=== PATIENT | female | born 1960 | race Caucasian/White ===

== ENCOUNTER → 2023-07-25 14:51 | Outpatient (REF) | payer BC, SELFPAY | LOC: HWRAD 14:51 | PROVIDERS: ATTENDING PHYSICIAN Family Medicine | DX: R10.32 Left lower quadrant pain (principal) | CPT/HCPCS: 74178; Q9967 ==

== ENCOUNTER → 2023-08-16 09:12 | Outpatient (REF) | payer BC, SELFPAY | LOC: RCS 09:12 | PROVIDERS: ATTENDING PHYSICIAN Internal Medicine Cardiovascular Disease; FAMILY PHYSICIAN Family Medicine | DX: I25.10 Atherosclerotic heart disease of native coronary artery without angina pectoris (principal); R06.09 Other forms of dyspnea; I25.84 Coronary atherosclerosis due to calcified coronary lesion | CPT/HCPCS: 93017; 93350 ==

== ENCOUNTER 2023-09-10 13:00 | Inpatient (IN) | payer BC, SELFPAY ==
[2023-09-09 21:59] VITALS: BP 157/101
[2023-09-09 22:20] VITALS: BMI 21.2
--- NOTE | 2023-09-09 22:45 | ED.CVA ---
History of Present Illness
General
Chief Complaint: CVA/TIA Symptoms
Source: patient
Exam Limitations: none
Time Seen by Provider: 09/09/23 22:13
Nursing documentation reviewed up to this point in time: agreed with
Onset of Stroke Symptoms
Onset of symptoms known: Yes
Date of onset of symptoms: 09/09/23
History of Present Illness
History of Present Illness:
63 by/o F with h/o HLD
08/27 she had HAILE and pelvic floor lift surgery at [facility]; all internal incisions through vaginal canal and rectum
has had some post op issues, sounds like ileus/constipation that resolved, urine retention (mix pulled 2 days ago)and ongoing L SI joint pain that is being attributed to a suspected suture sitting near her SI nerve
not on opiates at this time
here with what sounds like TIA symptoms startinghans leslie d830 pm
pt was sitting onthe couch and got up to go to bed and she went to put something into her L hand and realized it was closed in a not-tight fist and it wouldn't open; she apparently was trying to tell her daughter this was happening and the daugher
noticed slurred speech and a facial droop (unclear what side)
the daughter ran to get her dad outside who came in an also heard the slurred speech and noticed corner of mouth turned down but cannot remember what side
symptoms lated 4 min and completely resolved and now pt feels fine
she does report she has had some dysuria since her cathther was pulled
and today urinary frequeny, has edy up sevral times to void
n fever, chills, vomiting, abdominal pain, diarrhea, bleeding.
she has no h/o stroke
no smokinng
Past History
Past History
ED Past Medical History: None
ED Past Surgical History: None
Social History
Tobacco: Non-smoker
Alcohol: None
Review of Systems
Review of Systems
Allergies reviewed?: Yes
All Other Systems: Not applicable
Phy Exam
Physical Exam
Physical Exam:
GENERAL: Alert , in no apparent distress
head: ncat
EYE: pupils equal and reactive
NECK: Supple
ENT: MMM
CARDIAC: Regular rate and rhythm, no edema
LUNGS: Clear breath sounds bilaterally, no acute respiratory distress, no wheezes/rales/rhonchi, occ cough
ABDOMEN: Soft, without focal tenderness, no r/g, no cvat, normal bowel sounds
NEUROLOGICAL: Alert and oriented, no focal neuro deficits, cn intact, no facail asymmetry, 5/5 strength, sensation intact, neg romberg; normal extinction
SKIN: Warm and dry, skin intact.
MUSCULOSKELETAL: No edema, well perfused.
PSYCH: Normal and appropriate interaction.
Course
Orders/Labs/Results
Orders:
Orders
09/09/23 22:04
Electrocardiogram (*1) Urgent
Reason for Study: TIA/Stroke
EKG- Treatment ONCE
09/09/23 22:39
CT Head W/o Iv Contrast Urgent
Comment:
Reason For Exam: tia symptmos, resolved
Cardiac Monitoring- Treatment ONCE
09/09/23 22:49
Complete Blood Count/With Diff Urgent
Comprehensive Metabolic Panel Urgent
Magnesium Urgent
PTT Urgent
Prothrombin Time Urgent
Troponin I Urgent
09/09/23 22:56
Urinalysis Reflex To Culture Urgent
Date Specimen was Collected: 09/09/23
Time Specimen was Collected: 22:53
Urine Microscopic Reflex Cult Urgent
Urine Culture Urgent
OSWALDO Source: U
Specimen Description:
Obtained by: Random
Date Specimen was Collected: 09/09/23
Time Specimen was Collected: 22:53
09/10/23 00:49
Aspirin 325 mg PO NOW STA
Cephalexin Monohydrate [Keflex] 500 mg PO NOW STA
09/10/23 00:50
Consult Neurology [NEUROLOGY CONSULT] Routine
Consulting Provider: Uvaldo Rouse
Was physician already notified: Yes
Abnormal Lab Results
09/09/23 09/09/23
22:49 22:56
RBC 3.63 L 10^6/uL
(4.20-5.40)
Hgb 10.7 L g/dL
(12.0-16.0)
Hct 30.9 L %
(37.0-47.0)
Abs Immat Gran (auto) 0.1 H 10^3/uL
(0-0.05)
Absolute Neuts (auto) 7.5 H 10^3/uL
(1.4-6.5)
Absolute Lymphs (auto) 1.1 L 10^3/uL
(1.2-3.4)
Immature Gran % 1.1 H %
(0-0.5)
Neutrophils % 81.6 H %
(42.2-75.2)
Lymphocytes % 12.4 L %
(20.5-51.1)
PT 14.8 H Sec
(11.4-14.6)
Sodium 134 L mmol/L
(135-145)
BUN 22 H mg/dl
(7-17)
Glucose 112 H mg/dl
(70-99)
Ur Occult Blood Reflex 3+ A
(Negative)
Leukocyte Esterase Rfl 2+ A
(Negative)
Urine Bacteria (Reflex) Few A
(Negative)
09/09/23 22:49
09/09/23 22:49
Vital Signs
Initial and Last Documented VS:
Initial Vital Signs
Temp Pulse Resp BP Pulse Ox
99.1 F 113 18 157/101 99
09/09/23 21:59 09/09/23 21:59 09/09/23 21:59 09/09/23 21:59 09/09/23 21:59
Last Documented Vital Signs
Temp Pulse Resp BP Pulse Ox
99.1 F 73 15 129/79 94
09/09/23 21:59 09/10/23 00:00 09/10/23 00:00 09/10/23 00:00 09/09/23 23:30
MDM/Problems Addressed
Differential Diagnosis Includes:
TIA, TGA, UTI
MDM/Problems Addressed:
63 y/o F2 weeks post op surgery
just had mix pulledd 2 days ago, voiding ok but dysuria
TIA symptoms L hand weakness, slurred speech and facial droop lasting 4 minutes tonight, fully resolved
no ho similar episode in the past
on HLD
initially hypertenive, improved on own
neuro intact
urine appears to be infected
wbc normla
pending CT
d/w neuro
recommends bp control and asa
admit for MRI
*Critical Care Note
Total Time (30-74mins, 75-104mins- exclusive of procedures): Not Applicable
ED Attending Note
-
Portions of this chart may have been created with voice recognition software.� Occasional wrong word or��sound alike� substitutions may have occurred due to the inherent limitations of voice recognition software.
Discharge Plan
Departure
Patient Disposition: Admit
Date of Disposition: 09/10/23
Time of Disposition: 00:45
Admit to: Telemetry
Presentation/result/management discussed w/ accepting MD/DO: Hospitalist
Condition: Fair
Covid-19: Not Applicable
Discharge Problem:
Brain TIA, UTI (urinary tract infection)
Prescriptions:
No Action
cyclobenzaprine [Flexeril] 10 mg Tablet
10 mg PO TID PRN (Reason: spasms)
ibuprofen 600 mg Tablet
600 mg PO Q6H PRN (Reason: pain)
methylprednisolone [Medrol (Melvin)] 4 mg Tablets,Dose Pack
0 mg PO PER PKG DIR
Rx Instructions:
09/06 - 60mg, 09/07 - 50mg, 09/08 - 40mg, 09/09 - 30mg, 09/10 - 20mg, 09/11 - 10mg
rosuvastatin 10 mg Tablet
10 mg PO DAILY
Referrals:
UNKNOWN - PT DOES,NOT KNOW [Family Provider] -
Interventions
Interventions:
*Risk Screen - Suicide Last Done: 09/09/23 21:59
*General Assessment Last Done: 09/09/23 21:59
*Neglect/Abuse Screening Last Done: 09/09/23 21:59
*ED COVID-19 Vaccine History Last Done: 09/09/23 22:22
ED- Pulmonary Assessment Last Done: 09/09/23 22:22
ED- Neurological Assessment Last Done: 09/09/23 22:22
ED- Cardiac Assessment Last Done: 09/09/23 22:22
ED Swallowing Screen Last Done: 09/09/23 22:22
Discharge Date and Time
Print Language: SAMOAN
[2023-09-09 22:55] LABS: % Basophils 0.2 % (0-2); % Eosinophils 0.1 % (0-6); % Immature Granulocytes 1.1 % (0-0.5); % Lymphocytes 12.4 % (20.5-51.1); % Monocytes 4.6 % (1.7-9.3); % Neutrophils 81.6 % (42.2-75.2); Absolute Immature Granulocytes 0.1 10^3/uL (0-0.05); Absolute Lymphocytes 1.1 10^3/uL (1.2-3.4); Absolute Monocytes 0.4 10^3/uL (0.1-0.6); Absolute Neutrophils 7.5 10^3/uL (1.4-6.5); Hematocrit 30.9 % (37.0-47.0); Hemoglobin 10.7 g/dL (12.0-16.0); Mean Corp Hgb Conc. 34.6 g/dL (33.0-37.0); Mean Corpuscular Hgb 29.5 pg (27.0-31.0); Mean Corpuscular Volume 85.1 fL (81.0-99.0); Mean Platelet Volume 9.3 fL (7.4-10.4); Nucleated Red Blood Cells % 0 %; Platelet Count 372 10^3/uL (130-400); Red Blood Cell Count 3.63 10^6/uL (4.20-5.40); Red Cell Dist. Width 13.5 % (11.5-14.5); White Blood Cell Count 9.2 10^3/uL (4.8-10.8)
[2023-09-09 22:59] VITALS: BP 134/88
[2023-09-09 23:00] VITALS: BP 128/89
[2023-09-09 23:01] LABS: Urine Albumin Negative (Neg - Trace); Urine Bilirubin Negative (Negative); Urine Character Clear (Clear); Urine Color Yellow; Urine Glucose Negative (Negative); Urine Ketone Negative (Negative); Urine Leukocyte 2+ (Negative); Urine Nitrite Negative (Negative); Urine Occult Blood 3+ (Negative); Urine Urobilinogen Negative (Neg - 1+); Urine pH 6.5 (5.0-9.0)
[2023-09-09 23:06] LABS: APTT 24.3 Sec (23.4-35.0)
[2023-09-09 23:08] LABS: ALT (SGPT) 14 U/L (0-35); AST (SGOT) 23 U/L (14-36); Albumin 4.4 g/dl (3.5-5.0); Alkaline Phosphatase 58 U/L (38-126); Blood Urea Nitrogen 22 mg/dl (7-17); Calcium 9.4 mg/dl (8.4-10.2); Carbon Dioxide 23 mmol/L (22-30); Chloride 104 mmol/L (98-107); Estimated Creatinine Clearance 83 ml/min; Glucose 112 mg/dl (70-99); Magnesium 2.2 mg/dl (1.6-2.3); Potassium 4.1 mmol/L (3.5-5.1); Sodium 134 mmol/L (135-145); Total Bilirubin 0.5 mg/dl (0.2-1.3); Total Protein 7.3 g/dl (6.3-8.2); eGFR > 60.00
[2023-09-09 23:19] LABS: Troponin I < 0.012 ng/ml
[2023-09-09 23:20] LABS: Urine Bacteria Few (Negative); Urine Red Blood Cell 0-2 /HPF (0-2)
[2023-09-10] VITALS (9 sets, daily range): BP systolic 113–145; BP diastolic 68–91; PULSE 66; O2SAT 97; BMI 20.4
[2023-09-10 00:06] LABS: INR 1.18; PT 14.8 Sec (11.4-14.6)
[2023-09-10] MEDS: KEFLEX 500 MG PO ×4 (00:57→22:25)
[2023-09-10] MEDS: ASPIRIN 325 MG PO (01:05)
--- NOTE | 2023-09-10 02:05 | HPS.HSE ---
Family Physician
-
Family Physician: NOT KNOW UNKNOWN - PT DOES
Chief Complaint
-
Speech difficulty
History of Present Illness
Patient is a 63y F with PMH significant for dyslipidemia and recent hysterectomy who presents to ED complaining of slurred speech, L hand weakness and L facial droop this evening. Patient underwent vaginal hysterectomy and pelvic floor lift at
[facility] on 08/28/23. Her recovery has been somewhat complicated by urinary retention and LLE radicular pain. Patient had Womack placed which was removed about 2 days ago. She reports persistent dysuria and frequency since that time. Patient had LLE
radicular pain which was attributed to nerve irritation. She was placed on Medrol hendrix pack this Sunday with some improvement in these symptoms.
This evening, patient was lying on the couch watching TV. She got up to go to bed and noted that she could not open her L hand. She was trying to move an ice pack from her R hand to her L, but her L hand would not open. She attempted to describe
her issue to her daughter, who then noted that the patient's speech seemed slurred. Daughter went to get the patient's and both family members appreciated facial droop (L sided best she can recall). Patient seemed somewhat confused as well.
These symptoms lasted for no greater than 5 minutes before completely resolving. Patient feels back to baseline at present. She denies any prior history of similar symptoms.
Patient has prior history of migraine headaches and does note that she appreciated a visual aura this afternoon. She never did develop a headache. She has not had atypical migraine symptoms in the past.
Medical History
Past Medical History
Past Medical History: Reports Other
Additional Past Medical History:
Dyslipidemia
Fibromyalgia
Migraine Headaches
Past Surgical History: Reports Other
Additional Past Surgical History:
Cataracts
Cervical Lymph Node Dissection
Hemorrhoidectomy
08/28/23 - Vaginal Hysterectomy and Pelvic Floor Lift
Social History
Tobacco: Non-smoker
Alcohol: None
Drug: None
Personal:
Living: With Family
Family History
Family History: Other (Father: HTN, DM, CAD, CHF)
Allergies / Home Medications
Allergies reflects when Allergies were last updated in [employer].
Home Medications with original date entered in [employer]
Allergy/Medication List:
Allergies
Allergy/AdvReac Type Severity Reaction Status Date / Time
Sulfa (Sulfonamide Allergy Unknown Verified 10/30/21 14:00
Antibiotics)
Home Medications
cyclobenzaprine 10 mg tablet 10 mg PO TID PRN spasms 09/10/23
ibuprofen 600 mg tablet 600 mg PO Q6H PRN pain 09/10/23
methylprednisolone 4 mg tablets in a dose pack (Medrol (Melvin)) 0 mg PO PER PKG DIR 09/10/23
rosuvastatin 10 mg tablet 10 mg PO DAILY 09/10/23
Review of Systems
-
History Source: Patient
A 12 point ROS was completed and negative except as noted: Yes
Constitutional: Denies Fever or Chills
EENT: Denies Sore Throat
Respiratory: Denies Cough or Trouble Breathing
Cardiac: Denies Chest Pain or Palpitations
Abdomen/GI: Denies Abdominal Pain, Nausea, Vomiting or Diarrhea
: Reports Dysuria and Frequency
Musculoskeletal: Denies Joint Pain or Edema
Neurological: Reports Weakness and Other (Slurred speech / facial droop.); Denies Dizzy or Headache
Psych: Denies Depression or Anxiety
Physical Exam
Vital Signs
Vital Signs
Temp Pulse Resp BP Pulse Ox
99.1 F 67 16 129/79 95
09/09/23 21:59 09/10/23 01:30 09/10/23 01:30 09/10/23 00:00 09/10/23 01:30
Physical Exam
General: Other (63y F in no acute distress.)
HEENT: Moist mucous membranes and PERRLA
Respiratory: Clear; No Wheezes, Rales or Rhonchi
Cardiac: S1/S2 and Regular Rhythm; No Murmur
GI: Soft, Non Tender, Non Distended and Normal Bowel Sounds
Musculoskeletal: No Clubbing, No Cyanosis and No Edema
Neuro: AO x 3 and Other (Perhaps slight L facial droop but smile is symmetric and tongue extends to midline. No focal weakness or sensory deficit appreciated on exam.)
Laboratory Results
-
09/09/23 22:49
09/09/23 22:49
Laboratory Results
PT 14.8 Sec (11.4-14.6) H 09/09/23 22:49
INR 1.18 09/09/23 22:49
APTT 24.3 Sec (23.4-35.0) 09/09/23 22:49
Total Bilirubin 0.5 mg/dl (0.2-1.3) 09/09/23 22:49
AST 23 U/L (14-36) 09/09/23 22:49
ALT 14 U/L (0-35) 09/09/23 22:49
Alkaline Phosphatase 58 U/L (38-126) 09/09/23 22:49
Troponin I < 0.012 ng/ml 09/09/23 22:49
Impression/Plan
-
A/P: Patient is a 63y F with PMH significant for dyslipidemia and recent vaginal surgery who presents to ED complaining of L hand weakness, facial droop and dysarthria.
Left Hand Weakness
Dysarthria / Facial Droop
- Observe overnight for further evaluation and treatment.
- ? CVA / TIA versus atypical migraine (note aura appreciated earlier in the evening).
- Now back to baseline. Follow for any changes overnight.
- Continue ASA daily in addition to usual statin therapy.
- MR brain in the AM.
- Neurology evaluation for additional recommendations.
s/p Vaginal Hysterectomy / Pelvic Floor Lift
LLE Radicular Pain
- Continue current Medrol dose course without interruption.
- Symptoms seem to be gradually improving per patient.
Blood Loss Anemia
- Likely secondary to recent surgery.
- No evidence of any ongoing bleeding, etc.
- Follow for any changes.
DVT Prophylaxis: SCDs
Code Status: Full
--- NOTE | 2023-09-10 03:10 | PTCARENOTE ---
Received pt from ED into room 2134. Pt is ambulatory. Reports some discomfort from recent surgery. AAOx3. VSS. NIH 0. Patient resting comfortably in bed, call abbott within reach.
[2023-09-10 06:51] LABS: Hematocrit 32.6 % (37.0-47.0); Hemoglobin 11.1 g/dL (12.0-16.0); Mean Corpuscular Hgb 29.9 pg (27.0-31.0); Mean Corpuscular Volume 87.9 fL (81.0-99.0); Mean Platelet Volume 9.4 fL (7.4-10.4); Platelet Count 355 10^3/uL (130-400); Red Blood Cell Count 3.71 10^6/uL (4.20-5.40); Red Cell Dist. Width 13.4 % (11.5-14.5); White Blood Cell Count 10.8 10^3/uL (4.8-10.8)
[2023-09-10 07:18] LABS: Blood Urea Nitrogen 18 mg/dl (7-17); Carbon Dioxide 23 mmol/L (22-30); Chloride 104 mmol/L (98-107); Estimated Creatinine Clearance 82 ml/min; Glucose 111 mg/dl (70-99); HDL Cholesterol 52 mg/dl; LDL Cholesterol, Calculated 177 mg/dl; Potassium 4.7 mmol/L (3.5-5.1); Sodium 137 mmol/L (135-145); Total Cholesterol 248 mg/dl (50-199); Triglyceride 98 mg/dl (10-149); Very Low Density Lipoprotein 19 mg/dl (0-30); eGFR > 60.00
--- NOTE | 2023-09-10 09:05 | CON.NEURO4 ---
Addendum entered and electronically signed by Homer Juan MD 09/10/23 12:46:
Studies reviewed.
I have personally examined the patient. I reviewed and agree with the MAINTENANCE MECHANIC HELPER's Note.
My addenda:
Awake, alert, interactive. No acute distress.
Speech intact.
Follows 2-step requests w/o difficulty. No tremor.
Extra-ocular movements grossly intact.
Facial movements full and symmetric. Hearing intact to normal conversational volume.
Normal UE movements bilaterally.
Neck: full ROM.
Chest: no dyspnea
Heart: no JVD
Ext: (-) Clubbing, (-) Cyanosis, (-) Edema
IMPRESSIONS/RECOMMENDATIONS:
Abrupt onset of left hand closure difficulty with speech change and questionable left facial droop possibly all consistent with transient ischemic attack or migraine with aura (less likely)
Would continue aspirin indefinitely
Check MRI of brain with MRA head and neck for structural abnormalities
Increase home rosuvastatin dosing from 20 to 40 mg routinely
Goal of normotension
Continue decreasing prednisone dosing being utilized for post hysterectomy inflammation
D/W patient
Will continue to follow pending results.
Original Note:
Documented by User: Diana Jon NP 09/10/23 11:27
Consultation - Neurology 4
-
CONSULTING PHYSICIAN: Homer Juan MD
REFERRING PHYSICIAN: ER/Lela Ballard PA-C
DICTATED BY: BJ Alonso
DATE/TIME OF REQUEST: 09/10/23
DATE/TIME OF CONSULTATION: 09/10/23
Reason for Consultation: Left hand weakness, slurred speech
History of Present Illness:
This is a 63-year-old right-handed female who has presented to the hospital on 09/09/23 with report of left hand abnormality, slurred speech, and left facial drooping. Patient recently underwent HAILE and pelvic floor lift at [facility] on
08/28/23 for uterine prolapse. Postoperatively she experienced some complications including severe constipation, uterine retention (mix removed on 09/07/23), UTI, and left-sided SI joint pain thought to possibly be related to a suture near her
sciatic nerve.
Patient reports that last evening (09/09/23) at 2030 she was at her baseline sitting on her couch. She stood up to go get ready for bed and tried to pick something up in her left hand and noticed that her hand was closed tightly and she was unable
to open it. She went to tell her daughter about her hand, and her daughter noted that her speech sounded slurred and her left face appeared droopy. Her symptoms lasted for about 4 minutes before completely resolving. On arrival to the ER, NIHSS was
0. CT head was obtained and is negative for any acute abnormalities. She was not a candidate for TNK/IAT due to NIHSS 0, resolution of symptoms. She was loaded with aspirin 325mg in the ER. Today (09/10/23), patient reports feeling at her baseline.
She denies any headache, dizziness, vision changes, speech/swallow difficulty, numbness, weakness, chest pain, palpitations, and shortness of breath. She does report having a visual aura about 4 hours prior to this event. She still notes left entire
buttock discomfort and vaginal pressure. Last week she notes 1-2 days of left-sided sciatica but currently she does not have any left leg discomfort. She notes a history of migraine with aura and since her cataract extraction in 02/2023 she has been
seeing more floaters, but she has never had any other stroke symptoms with headaches previously. She also notes a history of severe left neck pain in 2021 with residual mild left neck/jaw pain that is more prominent in the winter months/worse with
wind exposure. She had a CTA neck and MRI neck completed in 2021 that were unremarkable. She has been taking Flexeril, ibuprofen, and a steroid taper for her left buttock discomfort.
Past Medical History: Migraine with aura, HLD, fibromyalgia, left-sided sciatica, uterine prolapse
Surgical History: cervical lymph node dissection, hysterectomy/pelvic floor lift, hemorrhoidectomy, wisdom teeth extraction, b/l cataract removal
Family History: Mother- from PE following surgery at age 55.
Social History: Denies tobacco and illicit drug use. Occasional alcohol.
Allergies: Sulfa.
Home Medications: See below.
Review of Symptoms:
Patient denies any fever, headache, chest pain, shortness of breath, GI symptoms.
�Per the HPI.�All systems are reviewed negative except above.
Physical Exam:
The patient is afebrile, abdomen is nondistended, breathing is unlabored, skin is warm and dry, no edema.
NIH Stroke Scale:
I performed the NIH stroke scale on the patient on 09/10/23 at 0915. The patient scored 0 points on the NIH stroke scale assessment, which were assigned as follows: See below.
Neurologic Examination:
The patient is awake, alert and oriented x 3. She is able to follow commands and answer questions appropriately. There is no aphasia or dysarthria. On cranial nerve assessment, pupils are 3 mm bilateral, round and reactive to light and
accommodation. Visual pearce are full. Extraocular movements are intact. Facial sensations are intact and bilaterally symmetrical, there is no facial asymmetry. Hearing is intact bilaterally to normal conversation volume. Tongue palate and uvula are
midline. Sternocleidomastoid strengths are full bilaterally. Motor strengths are 5/5 bilateral upper and lower extremities on medical research [place] scale. There is no drift or involuntary movement noted. Deep tendon reflexes are 2+ bilateral
upper and lower extremities and Babinski is absent bilaterally. There was no extinction noted on double simultaneous stimulation. Coordination is intact by finger to nose bilaterally.
Lab Results: See below.
Neuro Imaging:
1. CT Head 09/09/23: No CT abnormality is appreciated. Consider MRI of brain as symptomatically warranted.
Differentials for the patient's presentation include:
1. TIA possible.
2. Migraine with aura possible.
3. Seizure possible but less likely.
Patient has the following risk factors for their symptoms: HLD
IV Tenecteplase/IAT candidacy: She was not a candidate for TNK/IAT due to NIHSS 0, resolution of symptoms.
Recommendations:
-Continue aspirin 81mg daily.
-Goal normotension.
-MRI brain noncontrast, MRA neck/head pending.
-LDL goal <70. LDL is 177. Increase home rosuvastatin from 20mg to 40mg daily.
-Goal normoglycemia, hbA1c is pending.
-Checking blood work for metabolic abnormalities.
-NIHSS and neurological checks per unit guidelines.
-Provide patient with a stroke education packet.
-PT/OT evaluations.
-DVT prophylaxis.
-Will follow pending results.
Discussed patient care with: Dr. Juan, the patient
Vital Signs and Labs
-
Vital Signs and Labs:
Vital Signs
Temp Pulse Resp BP Pulse Ox
98.4 F 67 16 129/73 96
09/10/23 07:40 09/10/23 07:40 09/10/23 07:40 09/10/23 07:40 09/10/23 07:40
Lab Results
09/10/23 06:31
09/10/23 06:31
PT 14.8 Sec (11.4-14.6) H 09/09/23 22:49
INR 1.18 09/09/23 22:49
APTT 24.3 Sec (23.4-35.0) 09/09/23 22:49
Sodium 137 mmol/L (135-145) 09/10/23 06:31
Potassium 4.7 mmol/L (3.5-5.1) 09/10/23 06:31
BUN 18 mg/dl (7-17) H 09/10/23 06:31
Glucose 111 mg/dl (70-99) H 09/10/23 06:31
Calcium 10.0 mg/dl (8.4-10.2) 09/10/23 06:31
LDL Cholesterol, Calc 177 mg/dl 09/10/23 06:31
Medications
-
Active Medications
Generic Name Dose Route Start Last Admin
Trade Name Freq PRN Reason Stop Dose Admin
Acetaminophen 650 mg 09/10/23 03:46
Acetaminophen 325 Mg Tablet PO 10/08/23 03:45
Q4HPRN PRN
Mild Pain / Temp > 101
Aspirin 81 mg 09/11/23 08:00
Aspirin 81 Mg Chewable Tablet PO 10/09/23 07:59
DAILY PURA
Methylprednisolone 4 mg 09/11/23 08:00
Methylprednisolone 4 Mg Tablet PO 10/09/23 07:59
DAILY PURA
Rosuvastatin Calcium 20 mg 09/10/23 08:56
Rosuvastatin (Crestor) 10 Mg Tablet PO 10/08/23 07:59
DAILY PURA
Sodium Chloride 0 flush 09/10/23 04:00
Sodium Chloride 0.9% (Flush) Syringe IV 10/08/23 03:59
PER PROTOCOL PURA
Home Medications
�Medication �Instructions �Recorded
cyclobenzaprine 10 mg tablet 10 mg PO TID PRN spasms 09/10/23
ibuprofen 600 mg tablet 600 mg PO Q6H PRN pain 09/10/23
methylprednisolone 4 mg tablets in 0 mg PO PER PKG DIR 09/10/23
a dose pack (Medrol (Melvin))
rosuvastatin 10 mg tablet 10 mg PO DAILY 09/10/23
NIH Stroke Score
Subsequent NIH Scale
Date of Subsequent NIH Scale: 09/10/23
Time of Subsequent NIH Scale: 09:15
NIH Stroke Score
Level of Consciousness: 0 - Alert
LOC Questions: 0-Answers both correctly
LOC Commands: 0-Performs both correctly
Best Horizontal Gaze: 0-Normal
Visual Pearce: 0=Normal, no visual loss
Facial Palsy: 0=Normal, symmetrical
Motor - Right Arm: 0=No drift 10 seconds
Motor - Left Arm: 0=No drift 10 seconds
Motor - Right Le-No drift 5 seconds
Motor - Left Le-No drift 5 seconds
Limb Ataxia: 0-Absent
Sensation: 0-Normal
Best Language: 0-No aphasia
Dysarthria: 0-Normal
Extinction and Inattention: 0-No abnormality
Total Score:: 0
Modified [place] (mRS) Score
Modified [place] Scale (mRS): No symptoms
Score: 0

Documented by User: Homer Juan MD 09/10/23 12:44
NIH Stroke Score
NIH Stroke Score
Total Score:: 0
Modified [place] (mRS) Score
Score: 0
--- NOTE | 2023-09-10 09:22 | PTOTSP ---
pt currently demonstrates ability to complete simple ADLs, functional transfers, ambulation with supervision to no assistance. no acute OT needs identified, will sign off.
--- NOTE | 2023-09-10 11:07 | CM ---
Addendum entered by Monserrat Gonzalez RN 09/10/23 11:27:
Patient is admitted under observational status. The observational letter was provided and explained. The patient had no questions with regards to the letter.
Original Note:
Reviewed the chart notes and spoke with the patient at the bedside. The patient resides with her spouse in a two story home with no steps to enter. The patient reports no DME/VN/SNF in the past. The patient confirmed her pharmacy of choice is
the [facility] [address] [place]. The patient anticipates being discharged to home with no additional needs being identified at this time. CM continues to be available to patient/family and is monitoring medical plan for needs at
discharge.
Plan: Discharge to home when medically stable.
[2023-09-10 11:48] LABS: TSH Reflex To Free T4 0.65 uIU/ml (0.47-4.68)
[2023-09-10 12:24] LABS: Folate 11.3 ng/ml (2.76-20)
[2023-09-10] MEDS: NSS (PRESERVATIVE FREE) 1 ML IV (12:25)
[2023-09-10] MEDS: ATIVAN 2 MG IV (12:26)
[2023-09-10 13:23] LABS: Vitamin B12 625 pg/ml (239-931)
[2023-09-10 13:39] LABS: Glycohemoglobin (HgbA1c) 4.8 % (4.0-5.6)
[2023-09-10] MEDS: PLAVIX 75 MG PO (15:20)
--- NOTE | 2023-09-10 16:52 | W.PN.HOSP.TC ---
Today's Communication/Plan
-
Dual antiplatelet therapy
PPI.
Monitor blood pressure trend
Neurologic monitoring
Echocardiogram
Continue oral antibiotics.
Assessment / Plan
Assessment / Plan
Patient is a 63y F with PMH significant for dyslipidemia and recent vaginal surgery who presents to ED complaining of L hand weakness, facial droop and dysarthria.
Impression:
Presentation with left hand weakness, self-limited episode of dysarthria and facial droop.
Acute right hemispheric CVA
MRI of the brain confirms small acute/subacute infarcts in the right parietal lobe
MRA of the neck and kashia of [place] with no vascular abnormalities.
LDL 177.
Hemoglobin A1c pending.
Echocardiogram pending
Initiate dual antiplatelet therapy with aspirin and Plavix
Continue statin medication dose
Goal of normotension
Continue neurochecks
s/p Vaginal Hysterectomy / Pelvic Floor Lift
LLE Radicular Pain
- Continue current Medrol dose course without interruption.
- Symptoms seem to be gradually improving per patient.
Blood Loss Anemia
- Likely secondary to recent surgery.
- No evidence of any ongoing bleeding, etc.
- Follow for any changes.
UTI
Likely catheter associated UTI given recent Womack catheter required for urine retention.
Final urine cultures pending
Continue Keflex.
DVT Prophylaxis: SCDs
Code Status: Full
Anticipated Discharge: 24 - 48 hours
Subjective/Interval History
-
Date of Service: September 10, 2023
Objective Data
-
Labs:
Laboratory Results
09/10/23
06:31
WBC 10.8
Hgb 11.1 L
Hct 32.6 L
Plt Count 355
Sodium 137
Potassium 4.7
Chloride 104
Carbon Dioxide 23
BUN 18 H
Creatinine 0.5 L
Glucose 111 H
Calcium 10.0
Vital Signs:
Vital Signs
Temp Pulse Resp BP Pulse Ox
97.5 F 90 14 126/86 95
09/10/23 15:50 09/10/23 15:50 09/10/23 15:50 09/10/23 15:50 09/10/23 15:50
I&O
09/09/23 09/10/23 09/11/23
06:59 06:59 06:59
Intake Total 440 / 440
Balance 440 / 440
Physical Exam
-
General: Well Developed and No Apparent Distress
HEENT: Normocephalic, Atraumatic and Moist Mucous Membranes
Respiratory: Clear to Auscultation
Cardiac: Regular Rhythm and S1/S2; Negative Murmur, Rub or Gallop
GI: Soft, Nontender, Nondistended and Normal Bowel Sounds; Negative Organomegaly
Rectal: Deferred by Provider
Musculoskeletal: No Clubbing, No Cyanosis and No Edema
Skin: Negative Rash
Neuro: Nonfocal/Grossly Intact
[2023-09-10] MEDS: PROTONIX 20 MG PO (17:28)
[2023-09-10] MEDS: CRESTOR 40 MG PO (17:28)
--- NOTE | 2023-09-11 00:53 | PTCARENOTE ---
Pt woke up complaining of 5-6/10 chest pain on the R side that radiated to shoulder blade. Pt described it as a tightness that would get worse and then ease up repeatedly. Taking a deep breath would also increase pain in shoulder blade. VSS. BP
134/77, HR 71, 98%RA, afebrile. EKG -NSR. Notified [facility] REPA[facility]. Ordered STAT troponin. After a few minutes, pt stated that the pain went away in her chest but still has minimal pain in shoulder blade. Resting comfortably in bed, call abbott within reach.
[2023-09-11 01:33] LABS: Troponin I < 0.012 ng/ml
[2023-09-11 03:13] VITALS: BP 118/72
[2023-09-11 06:00] VITALS: BMI 20.1
[2023-09-11 07:45] VITALS: BP 133/83
[2023-09-11] MEDS: KEFLEX 500 MG PO ×2 (08:16→13:21)
[2023-09-11] MEDS: PLAVIX 75 MG PO (08:16)
[2023-09-11] MEDS: PROTONIX 20 MG PO (08:16)
[2023-09-11] MEDS: MEDROL 4 MG PO (08:16)
[2023-09-11] MEDS: LOW STRENGTH ASPIRIN 81 MG PO (08:17)
--- NOTE | 2023-09-11 10:06 | W.PN.NEURO.1 ---
Today's Communication / Plan
-
Would continue aspirin indefinitely
Increased rosuvastatin dosing from 20 to 40 mg routinely
Goal of normotension
Continue decreasing prednisone dosing being utilized for post hysterectomy inflammation
Check hypercoagulable profile as outpatient at 6 weeks
Neuro Assessment/Plan
Assessment
IMPRESSIONS/RECOMMENDATIONS:
Abrupt onset of left hand closure difficulty with speech change and questionable left facial droop possibly all consistent with transient ischemic attack or migraine with aura (less likely)
MRI of brain with MRA head and neck for structural abnormalities
Plan
Would continue aspirin indefinitely
Increased rosuvastatin dosing from 20 to 40 mg routinely
Goal of normotension
Continue decreasing prednisone dosing being utilized for post hysterectomy inflammation
Check hypercoagulable profile as outpatient at 6 weeks
Will follow as outpatient.
Subjective/Objective
Subjective Data
Date of Service: September 11, 2023
No issue with hand function.
Objective Data
Vital Signs
Temp Pulse Resp BP Pulse Ox
36.6 C 83 16 133/83 97
09/11/23 07:45 09/11/23 07:45 09/11/23 07:45 09/11/23 07:45 09/11/23 07:45
Lab Results
09/10/23 06:31
09/10/23 06:31
PT 14.8 Sec (11.4-14.6) H 09/09/23 22:49
INR 1.18 09/09/23 22:49
APTT 24.3 Sec (23.4-35.0) 09/09/23 22:49
Sodium 137 mmol/L (135-145) 09/10/23 06:31
Potassium 4.7 mmol/L (3.5-5.1) 09/10/23 06:31
BUN 18 mg/dl (7-17) H 09/10/23 06:31
Glucose 111 mg/dl (70-99) H 09/10/23 06:31
Calcium 10.0 mg/dl (8.4-10.2) 09/10/23 06:31
LDL Cholesterol, Calc 177 mg/dl 09/10/23 06:31
Vitamin B12 625 pg/ml (239-931) 09/10/23 06:31
Patient Allergies
Sulfa (Sulfonamide Antibiotics) Allergy (Verified 10/30/21 14:00)
Unknown
Review of Systems
-
History Source: Patient
All other systems: Reviewed and negative
Physical Exam
-
General: No Apparent Distress and Appears Stated Age
Eyes: Round OU, [place] Conjunctivae and No Ptosis
HEENT: Anicteric and Moist Mucous Membranes
Neck: Full Range of Motion
Respiratory: No Dyspnea
Cardiac: No JVD
GI: Non-distended
Skin: Unremarkable
Extremities: No Clubbing, No Cyanosis and No Edema
Psych: Negative Intact Judgement/Insight
Extended Neurological Exam
Mood & Affect: Depressed and Anxious
Attention Span & Concentration: Awake, Alert and Interactive
Memory: Unremarkable
Tremor: Hand Tremor Absent and Head Tremor Absent
Speech: Quality Unremarkable and Quantity Unremarkable
Cranial Nerve II: Left Eye: Pupillary Size Unremarkable and Visual Pearce Grossly Intact
Cranial Nerve II: Right Eye: Pupillary Size Unremarkable and Visual Pearce Grossly Intact
Cranial Nerves III, IV, : Extraocular Movement: Grossly Intact
Cranial Nerve VII: Facial Symmetry: Normal Facial Symmetry
Cranial Nerve VIII: Hearing: Unremarkable Hearing to Normal Conversational Volume
Muscle Strength, Overall: Spontaneously Moves (all extremities)
Muscle Bulk & Tone: Tone Unremarkable
Touch Sensation: Unremarkable
Coordination: Reaches for Objects without Difficulty
Past History
Past History
ED Past Surgical History: Gynecological
Social History
Tobacco: Non-smoker
Alcohol: None
Family History
Family History: Other (reviewed and non-contributory)
Medications
-
Medications:
Generic Name Dose Route Start Last Admin
Trade Name Freq PRN Reason Stop Dose Admin
Acetaminophen 650 mg 09/10/23 03:46
Acetaminophen 325 Mg Tablet PO 10/08/23 03:45
Q4HPRN PRN
Mild Pain / Temp > 101
Aspirin 81 mg 09/11/23 08:00 09/11/23 08:17
Aspirin 81 Mg Chewable Tablet PO 10/09/23 07:59 81 mg
DAILY PURA Administration
Cephalexin HCl 500 mg 09/10/23 13:00 09/11/23 08:16
Cephalexin 500 Mg Capsule PO 500 mg
QID PURA Administration
Clopidogrel Bisulfate 75 mg 09/10/23 14:00 09/11/23 08:16
Clopidogrel 75 Mg Tablet PO 09/30/23 08:01 75 mg
DAILY PURA Administration
Methylprednisolone 2 mg 09/12/23 08:00
Methylprednisolone 4 Mg Tablet PO 10/10/23 07:59
DAILY PURA
Pantoprazole Sodium 20 mg 09/10/23 17:00 09/11/23 08:16
Pantoprazole 20 Mg Delayed Release Tablet PO 10/08/23 16:59 20 mg
DAILY PURA Administration
Polyethylene Glycol 17 grams 09/11/23 09:00
Polyethylene Glycol Powder 17 Grams Packet PO 10/09/23 08:59
DAILY PURA
Rosuvastatin Calcium 40 mg 09/10/23 18:00 09/10/23 17:28
Rosuvastatin (Crestor) 40 Mg Tablet PO 10/08/23 17:59 40 mg
QPM PURA Administration
Sodium Chloride 0 flush 09/10/23 04:00
Sodium Chloride 0.9% (Flush) Syringe IV 10/08/23 03:59
PER PROTOCOL PURA
[2023-09-11] MEDS: MIRALAX 17 GRAMS PO (10:28)
[2023-09-11 11:25] VITALS: BP 121/81
--- NOTE | 2023-09-11 13:07 | W.DS.TRANS ---
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
-
Discharge Instructions:
Discharge Diagnosis/Procedures CVA
Diet Low Cholesterol
Instructions:
Stand-Alone Forms:
Changes to Home Medications: Yes
Discharge Medications:
DC Medications w/original date entered in [employer]
cyclobenzaprine 10 mg tablet 10 mg PO TID PRN spasms 09/10/23
methylprednisolone 4 mg tablets in a dose pack (Medrol (Melvin)) 0 mg PO PER PKG DIR inflammation 09/10/23
aspirin 81 mg chewable tablet 81 mg PO DAILY #30 tabs 09/11/23
cephalexin 500 mg capsule 500 mg PO QID #12 caps 09/11/23
clopidogrel 75 mg tablet 75 mg PO DAILY #19 tabs 09/11/23
pantoprazole 20 mg tablet,delayed release 20 mg PO DAILY #30 tabs 09/11/23
rosuvastatin 40 mg tablet 40 mg PO QPM #30 tabs 09/11/23
Home Medication Changes
DAPT along with PPI
Increased dose of statin
Pending Results: No
--- NOTE | 2023-09-11 13:10 | CM ---
Reviewed the chart notes and spoke with the patient. Patient being discharged today to home with no needs. Patient's family will provide transportation.
== END 2023-09-11 15:14 | disposition home or self-care (01) | DRG 65 ==
LOC: 2 NORTH 13:00
PROVIDERS: Nurse Practitioner Family; Physician Assistant; ADMITTING PHYSICIAN Hospitalist; ATTENDING PHYSICIAN Internal Medicine; EMERGENCY PHYSICIAN Student in an Organized Health Care Education/Training Program; OTHER PHYSICIAN Psychiatry & Neurology Neurology
DX: I63.9 Cerebral infarction, unspecified (principal); D62 Acute posthemorrhagic anemia; T83.511A Infection and inflammatory reaction due to indwelling urethral catheter, initial encounter; N39.0 Urinary tract infection, site not specified; D68.59 Other primary thrombophilia; G83.24 Monoplegia of upper limb affecting left nondominant side; Y84.6 Urinary catheterization as the cause of abnormal reaction of the patient, or of later complication, without mention of misadventure at the time of the procedure; R29.700 NIHSS score 0; R47.1 Dysarthria and anarthria; R47.81 Slurred speech; R29.810 Facial weakness; M54.32 Sciatica, left side; M79.7 Fibromyalgia; E78.5 Hyperlipidemia, unspecified; G43.909 Migraine, unspecified, not intractable, without status migrainosus; Z79.52 Long term (current) use of systemic steroids; Z79.899 Other long term (current) drug therapy; Z98.890 Other specified postprocedural states; Z90.710 Acquired absence of both cervix and uterus; Z88.2 Allergy status to sulfonamides
CPT/HCPCS: 70450; 70544; 70548; 70551; 80048; 80053; 80061; 81003; 81015; 82607; 82728; 82746; 83036; 83735; 84443; 84484; 85025; 85027; 85610; 85730; 87086; 93005; 93306; 96374; 97161; 97165; 99285; A9585

== ENCOUNTER 2023-09-12 23:20 | Emergency (ER) | payer BC, SELFPAY ==
[2023-09-12 23:22] VITALS: BP 130/90
[2023-09-13 00:59] VITALS: BMI 19.5
[2023-09-13 01:00] VITALS: BP 119/77
--- NOTE | 2023-09-13 01:22 | ED.GENMED ---
History of Present Illness
General
Chief Complaint: DVT/Possible Blood Clot
Source: patient and previous hospital records (Recent hospitalization September 09 to September 10 for self-limiting left hand weakness, left facial droop. Found to have small acute right parietal infarct.)
Exam Limitations: none
Time Seen by Provider: 09/13/23 01:01
Nursing documentation reviewed up to this point in time: agreed with
History of Present Illness
History of Present Illness:
This is a 63-year-old woman who underwent vaginal hysterectomy with pelvic floor lift procedure August 27 at [facility]. Since that surgery she has been suffering with left sacroiliac pain, left lower extremity radiculopathy thought to be
related to a suture near her sciatic nerve on the left.
She was hospitalized acutely here overnight September 08 until September 10 when she presented with self-limiting left hand weakness, left facial droop. MRI revealed a small acute infarct right parietal lobe. During that hospitalization she was also found to
have catheter associated UTI due to Womack catheter that was in place for 10 days postop hysterectomy.
Discharge to home on aspirin and Plavix, atorvastatin increased from 20 to 40 mg daily and started on Keflex for UTI.
She continues on prednisone taper for left sacroiliac pain/sciatica and as such was started on PPI for GI protection.
She presents tonight with complaints of bruises noted posterior aspect of both knees more pronounced behind her left knee with focal tenderness posterior knee more so left than the right. She was concerned for possible blood clot. She denies calf
pain nor swelling, no weakness nor numbness. She has had no difficulty urinating, no hematuria.
Left sciatic pain is slowly improving. She has had no falls nor known injuries.
Past History
Past History
ED Past Medical History: CVA (Right parietal CVA September 09, 2023-no residual deficits), Hypercholesterolemia and Other (Migraine headaches, fibromyalgia)
ED Past Surgical History: Gynecological (Vaginal hysterectomy/pelvic floor left August 28, 2023)
Social History
Tobacco: Non-smoker
Alcohol: None
Personal:
Living: with family
Employment: Employed
Family History
Family History: Other (reviewed and non-contributory)
Phy Exam
Physical Exam
Physical Exam:
GENERAL: 63-year-old woman appears her stated age, bright and alert, pleasant, appears in no acute distress. Daughter is accompanying.
EYE: anicteric
NECK: Supple, nontender, no meningismus, no significant adenopathy.
ENT: oral mucosa is moist. No rhinorrhea.
CARDIAC: Regular rate and rhythm. no murmur.
LUNGS: Clear breath sounds bilaterally, no acute respiratory distress, no wheezes/rales/rhonchi
ABDOMEN: Soft, nondistended, without focal tenderness, normoactive BS.
NEUROLOGICAL: Alert and oriented x3, no focal neuro deficits. Gait is steady.
SKIN: Warm and dry, normal color, skin intact. No rash.
MUSCULOSKELETAL: No C/C/E. peripheral pulses are full and equal b/l. There is near symmetric rounded ecchymotic patches bilateral posterior popliteal regions. Ecchymotic patch slightly larger left posterior knee with mild to moderate local
tenderness to palpation. Mild local soft tissue swelling. There is no ecchymosis, no joint effusion, no palpable bony tenderness to the knee and full knee range of motion without difficulty nor pain. There is no calf tenderness, no palpable
cords. No erythema nor palpable heat.
PSYCH: Normal and appropriate interaction.
Course
Orders/Labs/Results
Orders:
Orders
09/12/23 23:27
US Periph Venous LOWER Ext LT Urgent
Comment:
Reason For Exam: PAIN/HEMATOMA BEHIND KNEE
Vital Signs
Initial and Last Documented VS:
Initial Vital Signs
Temp Pulse Resp BP Pulse Ox
98.1 F 88 24 130/90 95
09/12/23 23:22 09/12/23 23:22 09/12/23 23:22 09/12/23 23:22 09/12/23 23:22
Last Documented Vital Signs
Temp Pulse Resp BP Pulse Ox
98.1 F 88 24 119/77 97
09/12/23 23:22 09/12/23 23:22 09/12/23 23:22 09/13/23 01:00 09/13/23 01:00
MDM/Problems Addressed
Differential Diagnosis Includes:
Patient presents with small subcutaneous hematomas posterior popliteal bilaterally, more pronounced left posterior knee than right with mild to moderate local tenderness to palpation.
Concerning for focal contusion bilaterally perhaps from sitting in a wheelchair, stirrups.
Less likely DVT however venous Doppler left lower extremity obtained which is negative for DVT.
There is no joint effusion, no pain with range of motion of knee. There is no peripheral edema nor erythema.
Recommend supportive measures for focal contusions/hematomas, local warm compresses. May take Tylenol as needed for pain. Patient knows to avoid NSAIDs especially with dual antiplatelet and prednisone.
Follow-up with PCP for recheck.
Return precautions discussed.
Chronic conditions affecting care: Previous abdomnial surgery and Other (Recent ischemic stroke. Dual antiplatelet therapy)
*Radiology
Radiology exam reviewed: other (Venous Doppler left lower extremity negative for DVT.)
*Pulse Oximetry
Patient hypoxic: no
*Critical Care Note
Total Time (30-74mins, 75-104mins- exclusive of procedures): Not Applicable
ED Attending Note
-
Portions of this chart may have been created with voice recognition software.� Occasional wrong word or��sound alike� substitutions may have occurred due to the inherent limitations of voice recognition software.
Discharge Plan
Departure
Patient Disposition: Home (Routine Discharge)
Date of Disposition: 09/13/23
Time of Disposition: 01:22
Patient with high blood pressure during this ER visit?: No
Condition: Good
Discharge Problem:
bilateral posterior knee hematoma
Instructions: Hematoma
Prescriptions:
No Action
cyclobenzaprine 10 mg Tablet
10 mg PO TID PRN (Reason: spasms)
methylprednisolone [Medrol (Melvin)] 4 mg Tablets,Dose Pack
0 mg PO PER PKG DIR
Rx Instructions:
6/28 - 60mg, 29 - 50mg, 30 - 40mg, 7/1 - 30mg, 7/2 - 20mg, 7/3 - 10mg
cephalexin 500 mg Capsule
500 mg PO QID Qty: 12 0RF
aspirin 81 mg Tablet,Chewable
81 mg PO DAILY Qty: 30 0RF
clopidogrel 75 mg Tablet
75 mg PO DAILY Qty: 19 0RF
pantoprazole 20 mg Tablet,Delayed Release (Dr/Ec)
20 mg PO DAILY Qty: 30 0RF
rosuvastatin 40 mg Tablet
40 mg PO QPM Qty: 30 0RF
Referrals:
Andre Hatfield, DO [Active] - Call in 1-3 days for appt
Interventions
Interventions:
*Risk Screen - Suicide Last Done: 09/12/23 23:22
*General Assessment Last Done: 09/13/23 01:00
*Neglect/Abuse Screening Last Done: 09/12/23 23:22
ED- Fall Risk Assessment Last Done: 09/13/23 01:00
ED- Cardiac Assessment Last Done: 09/13/23 01:00
ED- Pulmonary Assessment Last Done: 09/13/23 01:00
ED-Peripheral Vascular Assessment Last Done: 09/13/23 01:00
ED-Skin Assessment Last Done: 09/13/23 01:00
Discharge Date and Time
Print Language: CROATIAN
== END 2023-09-13 01:37 | disposition home or self-care (01) ==
LOC: EMR 23:20
PROVIDERS: EMERGENCY PHYSICIAN Emergency Medicine; FAMILY PHYSICIAN Family Medicine
DX: S80.02XA Contusion of left knee, initial encounter (principal); S80.01XA Contusion of right knee, initial encounter; X58.XXXA Exposure to other specified factors, initial encounter
CPT/HCPCS: 99284; 93971

== ENCOUNTER 2023-10-17 14:14 | Emergency (ER) | payer BC, SELFPAY ==
[2023-10-17] VITALS (8 sets, daily range): BP systolic 115–143; BP diastolic 71–103; BMI 20.7
[2023-10-17 14:44] LABS: % Basophils 0.4 % (0-2); % Eosinophils 0.2 % (0-6); % Immature Granulocytes 0.4 % (0-0.5); % Lymphocytes 18.2 % (20.5-51.1); % Monocytes 4.1 % (1.7-9.3); % Neutrophils 76.7 % (42.2-75.2); Absolute Lymphocytes 1.9 10^3/uL (1.2-3.4); Absolute Monocytes 0.4 10^3/uL (0.1-0.6); Absolute Neutrophils 8.2 10^3/uL (1.4-6.5); Hematocrit 39.8 % (37.0-47.0); Hemoglobin 13.4 g/dL (12.0-16.0); Mean Corp Hgb Conc. 33.7 g/dL (33.0-37.0); Mean Corpuscular Hgb 30.2 pg (27.0-31.0); Mean Corpuscular Volume 89.6 fL (81.0-99.0); Mean Platelet Volume 9.5 fL (7.4-10.4); Nucleated Red Blood Cells % 0 %; Platelet Count 327 10^3/uL (130-400); Red Blood Cell Count 4.44 10^6/uL (4.20-5.40); Red Cell Dist. Width 13.5 % (11.5-14.5); White Blood Cell Count 10.6 10^3/uL (4.8-10.8)
[2023-10-17 14:45] LABS: Urine Albumin Trace (Neg - Trace); Urine Bilirubin Negative (Negative); Urine Character Clear (Clear); Urine Color Yellow; Urine Glucose Negative (Negative); Urine Ketone Negative (Negative); Urine Leukocyte 1+ (Negative); Urine Nitrite Negative (Negative); Urine Occult Blood 1+ (Negative); Urine Specific Gravity 1.015 (<1.030); Urine Urobilinogen Negative (Neg - 1+); Urine pH 6.5 (5.0-9.0)
--- NOTE | 2023-10-17 14:58 | ED.GENMED ---
History of Present Illness
General
Chief Complaint: Abdominal Pain
Time Seen by Provider: 10/17/23 14:58
History of Present Illness
History of Present Illness:
HPI: Patient presents with left-sided groin pain. She has had less severe pain in the past but this type of pain became more severe 3 days ago. She saw her surgeon 2 days ago (had pelvic floor surgery with hysterectomy 2 months ago) and has been
receiving trigger point injections through the vaginal wall. She had some subjective fevers and chills.
EXAM:
GENERAL: Well appearing in no distress
HEENT: Moist oral mucosa
CARDIOVASCULAR: No murmurs, normal heart rate, regular rhythm, No chest wall tenderness
PULMONARY: No respiratory distress, breath sounds are clear and equal
ABDOMEN: Soft with no peritoneal signs, no tenderness on the right side, there is mild tenderness to the left upper and left lower quadrant
NEUROLOGIC: Excellent strength all extremities, no coordination deficits
PSYCHIATRIC: Appropriate mental status, normal insight and judgement
EXTREMITIES: Nontender, no edema, moves all extremities equally
SKIN: No rash, no lesions
TIME OF INITIAL ENCOUNTER: 3 PM
NUMBER AND COMPLEXITY OF PROBLEMS ADDRESSED AT THE ENCOUNTER
� Chronic conditions affecting care: Has had hysterectomy and pelvic floor lift in August 2023
� Acute Exacerbation and/or Progression of Chronic Illness: This is an acute problem
� Differential Diagnosis includes: Diverticulitis, postsurgical complication, ureteral stone/colic, retroperitoneal hemorrhage, UTI, pyelonephritis
AMOUNT AND/OR COMPLEXITY OF DATA TO BE REVIEWED AND ANALYZED
� I performed an independent evaluation of and my interpretation is:
EKG:
CT: I personally reviewed CT imaging and I also spoke to the radiologist and there was concern at the left pelvis for 3 cm abscess. Foci of air also noted.
X-rays:
Laboratory Studies: White count is 10.6, hemoglobin normal, 1+ blood and 1+ leukocyte esterase
Other:
� Review of other/old records: The patient was admitted 1 month ago with TIA symptoms/left facial droop/found to have small acute right parietal infarct; she has been on DAPT and had a negative ultrasound for DVT last month
� Clinical information was obtained by an independent historian: None needed
� Prescriptions/Medications Considered but not given:
� Further testing considered but not performed:
RISK OF COMPLICATIONS AND/OR MORBIDITY OR MORTALITY OF PATIENT MANAGEMENT
� Social determinants of health affecting care: Lives at home
� Discussion with other providers: I spoke to Dr. Cifuentes. I called Dr. Crespo at 6:35 PM. Office number [phone]. I also spoke to Dr. Zuleta who recommends transfer as opposed to keeping patient in the hospital with
[facility] as her procedure was not performed at [place].
� Escalation of care including admission/observation vs risk of discharge considered: Patient reports worsening pain despite seeing her surgeon in follow-up and has not improved with trigger point junctions. Will obtain CT
imaging. Of note, the patient states she is no longer Plavix. Will try dose of Toradol. I spoke to Dr. Crespo at 6:50 PM. She accepts in transfer but recommends hospitalist admission at [facility] with consult to IR and ID. She recommends
antibiotics�I have started her on Zosyn. Throughout multiple reassessments today, the patient appears fairly comfortable. However given the abnormal CT imaging, the patient will be transferred [facility].
Past History
Past History
ED Past Medical History: CVA (Right parietal CVA September 09, 2023-no residual deficits), Hypercholesterolemia and Other (Migraine headaches, fibromyalgia)
ED Past Surgical History: Gynecological (Vaginal hysterectomy/pelvic floor left August 28, 2023)
Social History
Tobacco: Non-smoker
Alcohol: None
Personal:
Living: with family
Employment: Employed
Family History
Family History: Other (reviewed and non-contributory)
Phy Exam
Physical Exam
Physical Exam:
See HPI
Course
Orders/Labs/Results
Orders:
Orders
10/17/23 14:29
Complete Blood Count/With Diff Urgent
Comprehensive Metabolic Panel Urgent
Lipase Urgent
10/17/23 14:34
Urinalysis Reflex To Culture Urgent
Date Specimen was Collected: 10/17/23
Time Specimen was Collected: 14:22
Urine Microscopic Reflex Cult Urgent
Urine Culture Urgent
OSWALDO Source: U
Specimen Description:
Date Specimen was Collected: 10/17/23
Time Specimen was Collected: 14:22
10/17/23 15:08
CT Abd/pel W Iv And Oral Contr Urgent
Comment:
Reason For Exam: worsening L sided pain recent pelvic floor surg
Iohexol [Omnipaque] See Protocol PO NOW STA
Ketorolac [Toradol] 15 mg IV NOW STA
10/17/23 15:09
0.9% Sodium Chloride 1000 ml [Nss] 1,000 ml IV BOLUS
10/17/23 16:16
Ondansetron Injectable [Zofran] 4 mg IV NOW STA
10/17/23 18:50
Piperacillin/Tazo 3.375 Gram [Zosyn] 3.375 gram in 50 ml IV NOW
Abnormal Lab Results
10/17/23 10/17/23
14:29 14:34
Absolute Neuts (auto) 8.2 H 10^3/uL
(1.4-6.5)
Neutrophils % 76.7 H %
(42.2-75.2)
Lymphocytes % 18.2 L %
(20.5-51.1)
Calcium 10.4 H mg/dl
(8.4-10.2)
Ur Occult Blood Reflex 1+ A
(Negative)
Leukocyte Esterase Rfl 1+ A
(Negative)
Urine RBC 7-10 A /HPF
(0-2)
Urine Bacteria (Reflex) Moderate A
(Negative)
10/17/23 14:29
10/17/23 14:29
Vital Signs
Initial and Last Documented VS:
Initial Vital Signs
Temp Pulse Resp BP Pulse Ox
99.2 F 99 18 143/103 97
10/17/23 14:18 10/17/23 14:18 10/17/23 14:18 10/17/23 14:18 10/17/23 14:18
Last Documented Vital Signs
Temp Pulse Resp BP Pulse Ox
99.2 F 99 18 117/72 98
10/17/23 14:18 10/17/23 14:18 10/17/23 14:18 10/17/23 20:45 10/17/23 20:45
*Critical Care Note
Total Time (30-74mins, 75-104mins- exclusive of procedures): Not Applicable
ED Attending Note
-
Portions of this chart may have been created with voice recognition software.� Occasional wrong word or��sound alike� substitutions may have occurred due to the inherent limitations of voice recognition software.
Discharge Plan
Departure
Patient Disposition: Acute Care Hospital
Date of Disposition: 10/17/23
Time of Disposition: 19:11
Discharge Problem:
Postoperative abscess
Prescriptions:
No Action
polyethylene glycol 3350 [Miralax] 17 gram Powder In Packet
17 g PO DAILY
cetirizine [Zyrtec] 10 mg Tablet
10 mg PO HSPRN PRN (Reason: allergies)
calcium carbonate [Calcium 500] 500 mg calcium (1,250 mg) Tablet
500 mg PO DAILY@1000
magnesium 250 mg Tablet
250 mg PO DAILY@1000
coenzyme Q10 [Co Q-10] 100 mg Capsule
100 mg PO DAILY@1000
Synergistic
4 cap PO HS
aspirin 81 mg tablet,chewable
81 mg PO DAILY@1000
rosuvastatin 40 mg tablet
40 mg PO DAILY@1000
Referrals:
Lewcun,Andre G., DO [Family Provider] -
Hospital Transfer
Other hospital: [facility]
I certify that the patient requires transfer: Yes
Discussed case with accepting physician: Dr. Crespo
Reason for transfer: continuity of care PCP
Interventions
Interventions:
*Risk Screen - Suicide Last Done: 10/17/23 14:18
*General Assessment Last Done: 10/17/23 14:18
*Neglect/Abuse Screening Last Done: 10/17/23 14:18
ED- Fall Risk Assessment Last Done: 10/17/23 15:43
*ED COVID-19 Vaccine History Last Done: 10/17/23 15:29
EW-Nlrwrn-Zjpbmxarrf Assessment Last Done: 10/17/23 15:29
ED-Female Genitourinary Assessment Last Done: 10/17/23 15:29
Discharge Date and Time
Print Language: POLISH
[2023-10-17 15:08] LABS: ALT (SGPT) 18 U/L (0-35); AST (SGOT) 28 U/L (14-36); Albumin 4.8 g/dl (3.5-5.0); Alkaline Phosphatase 105 U/L (38-126); Blood Urea Nitrogen 12 mg/dl (7-17); Calcium 10.4 mg/dl (8.4-10.2); Carbon Dioxide 24 mmol/L (22-30); Chloride 104 mmol/L (98-107); Glucose 98 mg/dl (70-99); Sodium 136 mmol/L (135-145); Total Bilirubin 0.8 mg/dl (0.2-1.3); Total Protein 7.8 g/dl (6.3-8.2); eGFR > 60.00
[2023-10-17 15:17] LABS: Lipase 105 U/L (23-300)
[2023-10-17] MEDS: NSS 1000 IV (15:38)
[2023-10-17] MEDS: TORADOL 15 MG IV (15:38)
[2023-10-17] MEDS: OMNIPAQUE 50 ML PO (15:38)
[2023-10-17 15:50] LABS: Urine Bacteria Moderate (Negative); Urine Mucus Few
[2023-10-17] MEDS: ZOSYN 50 IV (19:02)
== END 2023-10-17 23:10 | disposition short-term general hospital (02) ==
LOC: EMR 14:14
PROVIDERS: Emergency Medicine; EMERGENCY PHYSICIAN Emergency Medicine; FAMILY PHYSICIAN Family Medicine
DX: T81.43XA Infection following a procedure, organ and space surgical site, initial encounter (principal); E78.00 Pure hypercholesterolemia, unspecified; Z86.73 Personal history of transient ischemic attack (TIA), and cerebral infarction without residual deficits; Z90.710 Acquired absence of both cervix and uterus
CPT/HCPCS: 99284; 96365; 96375; 74177; 80053; 81003; 81015; 83690; 85025; 87086; Q9967

== ENCOUNTER 2023-11-09 06:59 | Day surgery (SDC) | payer BC, SELFPAY | END 2023-11-09 10:00 | disposition home or self-care (01) | LOC: CATH 06:59 | PROVIDERS: ATTENDING PHYSICIAN Internal Medicine Cardiovascular Disease; FAMILY PHYSICIAN Family Medicine; OTHER PHYSICIAN Internal Medicine Cardiovascular Disease | DX: I08.1 Rheumatic disorders of both mitral and tricuspid valves (principal); Z86.73 Personal history of transient ischemic attack (TIA), and cerebral infarction without residual deficits; E78.5 Hyperlipidemia, unspecified; M79.7 Fibromyalgia; Z82.49 Family history of ischemic heart disease and other diseases of the circulatory system; Z79.82 Long term (current) use of aspirin | CPT/HCPCS: 93005; 93312; 93320; 93325 ==

== ENCOUNTER 2023-11-09 22:52 | Inpatient (IN) | payer BC, SELFPAY ==
[2023-11-09] VITALS (12 sets, daily range): BP systolic 115–154; BP diastolic 74–100; PULSE 65–73; BMI 20.5
[2023-11-09 17:28] LABS: % Basophils 0.6 % (0-2); % Eosinophils 0.5 % (0-6); % Immature Granulocytes 0.2 % (0-0.5); % Lymphocytes 45.9 % (20.5-51.1); % Monocytes 5.5 % (1.7-9.3); % Neutrophils 47.3 % (42.2-75.2); Absolute Lymphocytes 2.9 10^3/uL (1.2-3.4); Absolute Monocytes 0.3 10^3/uL (0.1-0.6); Hematocrit 33.2 % (37.0-47.0); Hemoglobin 11.7 g/dL (12.0-16.0); Mean Corp Hgb Conc. 35.2 g/dL (33.0-37.0); Mean Corpuscular Hgb 29.4 pg (27.0-31.0); Mean Corpuscular Volume 83.4 fL (81.0-99.0); Mean Platelet Volume 9.6 fL (7.4-10.4); Nucleated Red Blood Cells % 0 %; Platelet Count 224 10^3/uL (130-400); Red Blood Cell Count 3.98 10^6/uL (4.20-5.40); Red Cell Dist. Width 13.1 % (11.5-14.5); White Blood Cell Count 6.2 10^3/uL (4.8-10.8)
[2023-11-09 17:50] LABS: ALT (SGPT) 55 U/L (0-35); AST (SGOT) 54 U/L (14-36); Albumin 4.1 g/dl (3.5-5.0); Alkaline Phosphatase 63 U/L (38-126); Blood Urea Nitrogen 9 mg/dl (7-17); Carbon Dioxide 26 mmol/L (22-30); Chloride 102 mmol/L (98-107); Glucose 85 mg/dl (70-99); Potassium 3.4 mmol/L (3.5-5.1); Sodium 136 mmol/L (135-145); Total Bilirubin 0.6 mg/dl (0.2-1.3); Total Protein 6.6 g/dl (6.3-8.2); eGFR > 60.00
[2023-11-09 17:51] LABS: Troponin I < 0.012 ng/ml
--- NOTE | 2023-11-09 18:22 | ED.GENMED ---
History of Present Illness
<BJ Marie - Last Filed: 11/09/23 21:46>
General
Chief Complaint: Fainting Sensation
Source: patient
Exam Limitations: none
Time Seen by Provider: 11/09/23 17:57
History of Present Illness
History of Present Illness:
this is a 63 year old female that comes in with c/o dizziness. States that she had a CT on Sunday as she had had diverticulitis with an abscess. States that she is still on antibiotic. States that this collection had gotten a little bigger but
they area watching this. States that on Sunday she is to have surgery to take a stitch out of the nerve and drain the abscess. Today she had a MARCELA here and they found a hole in her heart. States that she will have this repaired in November.
States that she went home and she felt good. States that hours had passed when he head started to spine. States that when she got up this was worse. States that she went to the [place] and she could hardly make it back without holding on to things.
States that she felt weak, nausea, slightly SOB and dizzy. States that this did not feel like her vertigo in the past and she never felt like this before. Denies any fever, chills, chest pain, abd pain, vomiting, diarrhea, headache, urinary burning.
Past History
<BJ Marie - Last Filed: 11/09/23 21:46>
Past History
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
ED Past Surgical History: Gynecological (Vaginal hysterectomy/pelvic floor left August 28, 2023) and Other (Right neck lymph nodes removed, Hemorrhoids)
Social History
Tobacco: Non-smoker
Alcohol: None
Personal:
Living: with family
Employment: Employed
Family History
Family History: Other (reviewed and non-contributory)
Review of Systems
<BJ Marie - Last Filed: 11/09/23 21:46>
Review of Systems
All Other Systems: ROS reviewed and negative except as documented in HPI and ROS
Constitutional: Reports no symptoms; Denies fever or chills
EENT: Reports no symptoms
Respiratory: Reports trouble breathing (Slight); Denies cough
Cardiac: Reports no symptoms; Denies chest pain
ABD/GI: Reports nausea; Denies abdominal pain, vomiting or diarrhea
: Reports no symptoms; Denies dysuria, frequency or urgency
Musculoskeletal: Reports no symptoms
Skin: Reports no symptoms
Neurological: Reports dizzy; Denies headache
Psychiatric: Reports no symptoms
Phy Exam
<BJ Marie - Last Filed: 11/09/23 21:46>
General Physical Exam
General Presentation: well appearing
General age: appears stated age
General Skin: warm and dry
General Habitus: normal
General Mental: alert
General Hydration: dry mucous membranes
ENT Exam
ENT Exam: TM's normal, pharynx normal and neck supple
Eye Exam
Eye Exam: PERRL and EOMI
Cardiovascular Exam
Cardiovascular Exam: regular rate/rhythm, no edema and normal peripheral pulses
Pulmonary Exam
Pulmonary Exam: lungs clear, no respiratory distress, no rales, chest non tender, no crackles, no rhonchi, no wheezing and no cough
Gastrointestinal Exam
Gastrointestinal Exam: normal bowel sounds, non tender, soft, no organomegaly, no pulsatile mass and non distended
NIH Stroke Score
Level of Consciousness: 0 - Alert
LOC questions: 0-Answers both correctly
LOC Commands: 0-Performs both correctly
Best Gaze: 0-Normal
Visual Pearce: 0=Normal, no visual loss
Facial palsy: 0=Normal, symmetrical
Motor - Right Arm: 0=No drift 10 seconds
Motor - Left Arm: 0=No drift 10 seconds
Motor - Right Le-No drift 5 seconds
Motor - Left Le-No drift 5 seconds
Limb Ataxia: 0-Absent
Sensation: 0-Normal
Best Language: 0-No aphasia
Dysarthria: 0-Normal
Extinction and Inattention: 0-No abnormality
Total Score:: 0
Musculoskeletal Exam
Musculoskeletal Exam: full ROM and no edema
Skin Exam
Skin Exam: normal color, warm/dry, no rash and no petechia
Psychiatric Exam
Psychiatric Exam: normal mood/affect
<Geneva Womack MD - Last Filed: 11/12/23 01:48>
NIH Stroke Score
Total Score:: 0
Course
<BJ Marie - Last Filed: 11/09/23 21:46>
Orders/Labs/Results
Orders:
Orders
11/09/23 17:04
ECG [Electrocardiogram (*1)] Urgent
Reason for Study: Syncope
EKG- Treatment ONCE
11/09/23 17:10
Complete Blood Count/With Diff Urgent
Comprehensive Metabolic Panel Urgent
Troponin I Urgent
11/09/23 18:21
CT Head W/o Iv Contrast Urgent
Comment: Prior CVA
Reason For Exam: Dizziness
0.9% Sodium Chloride 1000 ml [Nss] 1,000 ml IV BOLUS
Meclizine [Antivert] 50 mg PO NOW STA
11/09/23 18:34
CR Chest - 2 Views Urgent
Comment: MARCELA today
Reason For Exam: SOB
11/09/23 20:15
Urinalysis Reflex To Culture Urgent
Date Specimen was Collected: 11/09/23
Time Specimen was Collected: 20:14
08/30/24 21:36
Lorazepam [Ativan] 1 mg IV NOW STA
11/09/23 21:44
Ondansetron Injectable [Zofran] 4 mg IV NOW STA
11/09/23 22:16
Admit/Transfer Patient As Directed
Co-Sign Provider:
Level of Care: Inpatient admission
Assign to:: Telemetry
Physician / Group: darius
Diagnosis: migraine vs cva
Reason for Telemetry: Arrhythmia
Date to Stop Telemetry: 11/12/23
Time to Stop Telemetry: 11:00
Reason for Hospitalization: migraine vs cva
Expected length of stay greater than two midnights?: Yes
ELOS- Estimated Length of Stay in days: 2
I certify the patient meets the requirements for IP care: Yes
11/09/23 22:17
Code Status As Directed
Resuscitation Status: Full Code
PRN Pain Medication Management As Directed
May give lesser potent ordered pain med per pt: Yes
preference::
Protocol:: Medication orders for pain may be administered in a
manner that supports deferring to patient preference
when the pt is:
- Requesting an ordered lesser potent pain medication.
Least to most potent pain medications are defined
as: acetaminophen < NSAID < tramadol < opioids
(morphine, oxycodone, hydromorphone).
- Requesting a lesser dose of the same medication IF
ORDERED.
- Requesting a less intrusive route of administration
if both routes are prescribed by the provider (PO <
IV).
11/09/23 22:39
Consult Notification Routine
Specialty to Notify: Neurology
Date consulting provider notified: 11/10/23
Time consulting provider notified: 07:25
Notified:: Provider
NEUROLOGY CONSULT Routine
Consulting Provider: Homer Juan
Was physician already notified: No
Reason for consult: migraine vs cva
11/09/23 23:00
Flush (0.9% Sodium Chloride) [Flush (Nss)] See Dose Instructions IV PER PROTOCOL
11/09/23 23:38
Amoxicillin 875 mg/Clav 125 mg [Augmentin 875 mg/125 mg] 1 tablet PO Q12
Butalb/Acetaminophen/Caffeine [Fioricet] 2 tab PO Q4HPRN PRN
Cetirizine HCl [Zyrtec] 10 mg PO HSPRN PRN
Ondansetron Injectable [Zofran] 4 mg IV Q6HPRN PRN
Polyethylene Glycol Powder [Miralax] 17 grams PO DAILYPRN PRN
11/09/23 23:38
Activity As Directed
Activity Level: As Tolerated
NIH Stroke Scale As Directed
Directions: Per protocol
Comment: every shift and with any change in condition or mental status
Neurological Checks As Directed
Frequency: q4h
Additional Instructions:: q4h x 24h upon admission to the floor, then qshift & with any change in condition
and mental status
Patient Education As Directed
Type: Stroke education packet
Comment: provide to patient and family
Pneumatic Compression Sleeves As Directed
Type: Knee high
Vital Signs As Directed
Frequency: Per unit guidelines
DX Deep Vein Thrombosis Video Routine
11/10/23 07:38
CMP [Comprehensive Metabolic Panel] IN AM
Cardiovascular Evaluation IN AM
Complete Blood Count/With Diff IN AM
11/10/23 08:00
Aspirin Chewable [Low Strength Aspirin] 81 mg PO DAILY
Calcium Carbonate [Oscal Jamir 500] 500 mg PO DAILY
11/12/23 11:00
DC Protocol for Telemetry ONCE
Abnormal Lab Results
11/09/23 11/09/23
17:10 20:15
RBC 3.98 L 10^6/uL
(4.20-5.40)
Hgb 11.7 L g/dL
(12.0-16.0)
Hct 33.2 L %
(37.0-47.0)
Potassium 3.4 L mmol/L
(3.5-5.1)
Creatinine 0.5 L mg/dL
(0.6-1.0)
AST 54 H U/L
(14-36)
ALT 55 H U/L
(0-35)
Urine Ketones 1+ A
(Negative)
11/09/23 17:10
11/09/23 17:10
H/H slightly low. AST/ALT mildly elevated. Troponin <0.012
Vital Signs
Initial and Last Documented VS:
Initial Vital Signs
Pulse Resp BP Pulse Ox
66 12 141/88 98
11/09/23 17:00 11/09/23 17:00 11/09/23 17:00 11/09/23 17:00
Last Documented Vital Signs
Temp Pulse Resp BP Pulse Ox
98.1 F 81 18 86/54 94
11/11/23 15:04 11/11/23 15:04 11/11/23 15:04 11/11/23 15:04 11/11/23 15:04
Publication Distributor consulted with Physician
Publication Distributor consulted with physician?: Yes
Name of Physician Consulted: Dr. Womack
<Geneva Womack MD - Last Filed: 11/12/23 01:48>
Orders/Labs/Results
Orders:
Orders
11/09/23 17:04
ECG [Electrocardiogram (*1)] Urgent
Reason for Study: Syncope
EKG- Treatment ONCE
11/09/23 17:10
Complete Blood Count/With Diff Urgent
Comprehensive Metabolic Panel Urgent
Troponin I Urgent
11/09/23 18:21
CT Head W/o Iv Contrast Urgent
Comment: Prior CVA
Reason For Exam: Dizziness
0.9% Sodium Chloride 1000 ml [Nss] 1,000 ml IV BOLUS
Meclizine [Antivert] 50 mg PO NOW STA
11/09/23 18:34
CR Chest - 2 Views Urgent
Comment: MARCELA today
Reason For Exam: SOB
11/09/23 20:15
Urinalysis Reflex To Culture Urgent
Date Specimen was Collected: 11/09/23
Time Specimen was Collected: 20:14
11/09/23 21:36
Lorazepam [Ativan] 1 mg IV NOW STA
11/09/23 21:44
Ondansetron Injectable [Zofran] 4 mg IV NOW STA
11/09/23 22:16
Admit/Transfer Patient As Directed
Co-Sign Provider:
Level of Care: Inpatient admission
Assign to:: Telemetry
Physician / Group: darius
Diagnosis: migraine vs cva
Reason for Telemetry: Arrhythmia
Date to Stop Telemetry: 11/12/23
Time to Stop Telemetry: 11:00
Reason for Hospitalization: migraine vs cva
Expected length of stay greater than two midnights?: Yes
ELOS- Estimated Length of Stay in days: 2
I certify the patient meets the requirements for IP care: Yes
11/09/23 22:17
Code Status As Directed
Resuscitation Status: Full Code
PRN Pain Medication Management As Directed
May give lesser potent ordered pain med per pt: Yes
preference::
Protocol:: Medication orders for pain may be administered in a
manner that supports deferring to patient preference
when the pt is:
- Requesting an ordered lesser potent pain medication.
Least to most potent pain medications are defined
as: acetaminophen < NSAID < tramadol < opioids
(morphine, oxycodone, hydromorphone).
- Requesting a lesser dose of the same medication IF
ORDERED.
- Requesting a less intrusive route of administration
if both routes are prescribed by the provider (PO <
IV).
11/09/23 22:39
Consult Notification Routine
Specialty to Notify: Neurology
Date consulting provider notified: 11/10/23
Time consulting provider notified: 07:25
Notified:: Provider
NEUROLOGY CONSULT Routine
Consulting Provider: Homer Juan
Was physician already notified: No
Reason for consult: migraine vs cva
11/09/23 23:00
Flush (0.9% Sodium Chloride) [Flush (Nss)] See Dose Instructions IV PER PROTOCOL
11/09/23 23:38
Amoxicillin 875 mg/Clav 125 mg [Augmentin 875 mg/125 mg] 1 tablet PO Q12
Butalb/Acetaminophen/Caffeine [Fioricet] 2 tab PO Q4HPRN PRN
Cetirizine HCl [Zyrtec] 10 mg PO HSPRN PRN
Ondansetron Injectable [Zofran] 4 mg IV Q6HPRN PRN
Polyethylene Glycol Powder [Miralax] 17 grams PO DAILYPRN PRN
11/09/23 23:38
Activity As Directed
Activity Level: As Tolerated
NIH Stroke Scale As Directed
Directions: Per protocol
Comment: every shift and with any change in condition or mental status
Neurological Checks As Directed
Frequency: q4h
Additional Instructions:: q4h x 24h upon admission to the floor, then qshift & with any change in condition
and mental status
Patient Education As Directed
Type: Stroke education packet
Comment: provide to patient and family
Pneumatic Compression Sleeves As Directed
Type: Knee high
Vital Signs As Directed
Frequency: Per unit guidelines
DX Deep Vein Thrombosis Video Routine
11/10/23 07:38
CMP [Comprehensive Metabolic Panel] IN AM
Cardiovascular Evaluation IN AM
Complete Blood Count/With Diff IN AM
11/10/23 08:00
Aspirin Chewable [Low Strength Aspirin] 81 mg PO DAILY
Calcium Carbonate [Oscal Jamir 500] 500 mg PO DAILY
11/12/23 11:00
DC Protocol for Telemetry ONCE
Abnormal Lab Results
11/09/23 11/09/23
17:10 20:15
RBC 3.98 L 10^6/uL
(4.20-5.40)
Hgb 11.7 L g/dL
(12.0-16.0)
Hct 33.2 L %
(37.0-47.0)
Potassium 3.4 L mmol/L
(3.5-5.1)
Creatinine 0.5 L mg/dL
(0.6-1.0)
AST 54 H U/L
(14-36)
ALT 55 H U/L
(0-35)
Urine Ketones 1+ A
(Negative)
11/09/23 17:10
11/09/23 17:10
Vital Signs
Initial and Last Documented VS:
Initial Vital Signs
Pulse Resp BP Pulse Ox
66 12 141/88 98
11/09/23 17:00 11/09/23 17:00 11/09/23 17:00 11/09/23 17:00
Last Documented Vital Signs
Temp Pulse Resp BP Pulse Ox
98.1 F 81 18 86/54 94
11/11/23 15:04 11/11/23 15:04 11/11/23 15:04 11/11/23 15:04 11/11/23 15:04
<BJ Marie - Last Filed: 11/09/23 21:46>
MDM/Problems Addressed
Differential Diagnosis Includes:
dehydration, Vertigo
MDM/Problems Addressed:
This is a 63 year old female that comes in with c/o dizziness. States that she had a MARCELA today and she was fine. Patient went home and eat and after sitting for hours she started to feel dizzy. States that this felt different then her Vertigo in the
past.
Will check labs. CT head, IV fluids and give Antivert. Patient with turning her head side to side becomes dizzy and feels like she is spinning.
Back into see patient. Patient was seen by Dr. Womack. Patient is still dizzy. Dr. Womack ordered Ativan and will also give patient Zofran. Will admit patient as she may need a MRI as this could be a posterior Stroke. Hospitalist notified.
Chronic conditions affecting care:
Vertigo
Acute Exacerbation and/or Progression of Chronic Illness:
Vertigo
<BJ Marie - Last Filed: 11/09/23 21:46>
*Radiology
Radiology exam reviewed: radiology read reviewed (CT head-Normal)
*Pulse Oximetry
Patient hypoxic: no
*EKG
Interpreted by ED Provider?: Yes
Heart Rate: 63
Rate: normal
Rhythm: sinus
Agate: normal axis
Interval: normal interval
QRS Pattern: normal QRS
Ischemia: no ischemia
*Mails Supervisor Interpretation
Rate: normal
Heart Rate: 70
Rhythm: sinus
*Critical Care Note
Total Time (30-74mins, 75-104mins- exclusive of procedures): Not Applicable
ED Attending Note
<BJ Marie - Last Filed: 11/09/23 21:46>
-
Portions of this chart may have been created with voice recognition software.� Occasional wrong word or��sound alike� substitutions may have occurred due to the inherent limitations of voice recognition software.
<Geneva Womack MD - Last Filed: 11/12/23 01:48>
ED Attending Note
Patient seen and examined by attending physician: Yes
I performed the substantive portion of visit, reviewed & personally made and approve the management plan that is documented in note by myself or BOB.: Yes
ED Attending Note:
63-year-old female presents emergency department after having a MARCELA this morning as part of her workup for recent stroke. She states that she was told that she has a 'hole in my heart' that needs to be repaired. She is currently taking aspirin,
and after her recent stroke was on DAPT for 3 weeks. She is compliant with her medications. She reports feeling fine after the procedure, and about 4 hours after getting home, she describes feeling like her head was 'spinning' associated with
intense nausea but no vomiting. This seemed to get particularly worse when she stood up to go to the bathroom. She states the dizziness is only when she moves her head a certain way and it is a sensation of spinning. This is in contrast to a
sensation of lightheadedness which is reported in the triage note, but patient denies here. She also denies diplopia, dysarthria, dysphagia, numbness, tingling, focal weakness, clumsiness. She is still having trouble walking status post
medications here. On exam, no nystagmus, speech clear, cranial nerves II through XII intact, no dysmetria, [id number] normal, motor 5 out of 5, sensory intact. Concern sxs today may represent post ciruc event, especially given know ?PAF, prior
CVA, etc. Not able to ambulate due to sxs. Will admit for further w/u and care.
Discharge Plan
Departure
Patient Disposition: Admit
Date of Disposition: 11/09/23
Time of Disposition: 21:45
Admit to: Telemetry
Presentation/result/management discussed w/ accepting MD/DO: Hospitalist
Patient with high blood pressure during this ER visit?: No
Condition: Good
Covid-19: Not Applicable
Discharge Problem:
Dizziness
Interventions
Interventions:
*Risk Screen - Suicide Last Done: 11/09/23 23:43
*General Assessment Last Done: 11/09/23 17:07
*Neglect/Abuse Screening Last Done: 11/09/23 17:07
*ED COVID-19 Vaccine History Last Done: 11/09/23 17:07
*Nursing Disposition Last Done: 11/09/23 23:39
ED- Cardiac Assessment Last Done: 11/09/23 17:09
ED- Neurological Assessment Last Done: 11/09/23 22:41
Discharge Date and Time
Discharge Date/Time: 11/09/23 23:40
[2023-11-09] MEDS: ANTIVERT 50 MG PO (18:26)
[2023-11-09] MEDS: NSS 1000 IV (18:29)
[2023-11-09 20:25] LABS: Urine Albumin Negative (Neg - Trace); Urine Bilirubin Negative (Negative); Urine Character Clear (Clear); Urine Color Yellow; Urine Glucose Negative (Negative); Urine Ketone 1+ (Negative); Urine Leukocyte Negative (Negative); Urine Nitrite Negative (Negative); Urine Occult Blood Negative (Negative); Urine Urobilinogen Negative (Neg - 1+)
[2023-11-09] MEDS: ATIVAN 1 MG IV (21:41)
[2023-11-09] MEDS: ZOFRAN 4 MG IV (21:54)
--- NOTE | 2023-11-09 22:19 | HPS.HSE ---
Family Physician
-
Family Physician: Andre Hatfield
Chief Complaint
-
dizziness
History of Present Illness
63-year-old female past medical history of patent randolph ovale CVA, migraine, hyperlipidemia, fibromyalgia, vertigo presenting with dizziness.
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 She went home and felt good in hours past when she started to feel dizzy that was worse with standing up or moving her head.
She went to the bathroom and she could hardly make it back without holding onto things. [place] weak with nausea, slight shortness of breath and dizzy. Dizziness does not feel like vertigo which she had before. She denies any fevers or chills, chest
pain, abdominal pain, vomiting, diarrhea, headache or urinary symptoms.
Since being in the hospital she has started developing a pulsating frontal and occipital headache. She denies aura. She denies any sensitivity to light. She denies any numbness or tingling, focal weakness, facial droop or difficulty speaking or
swallowing or gait dysfunction
Patient recently had pelvic floor lift and hysterectomy surgery in August. Afterwards she developed a stroke and was started on Plavix. She was found to have a pelvic fluid collection which was thought to be potential abscess versus hematoma
possibly from a stitch that was retained that could have hurt the sciatic nerve in the setting of Plavix started after stroke. She was started on Augmentin for potential diverticulitis which she finishes tomorrow. She is scheduled for surgery with
gynecology this upcoming Sunday for the fluid collection.
She drinks alcohol occasionally. She denies smoking.
Medical History
Past Medical History
Past Medical History: Reports Other (patent randolph ovale CVA, migraine, hyperlipidemia, fibromyalgia, vertigo)
Past Surgical History: Reports Other (Gynecological (Vaginal hysterectomy/pelvic floor left August 28, 2023) and Other (Right neck lymph nodes removed, Hemorrhoids))
Social History
Tobacco: Non-smoker
Alcohol: Occasional
Drug: None
Family History
Family History: Not pertinent
Allergies / Home Medications
Allergies reflects when Allergies were last updated in [facility].
Home Medications with original date entered in [facility]
Allergy/Medication List:
Allergies
Allergy/AdvReac Type Severity Reaction Status Date / Time
Sulfa (Sulfonamide Allergy Unknown Verified 10/24/23 10:52
Antibiotics)
Home Medications
aspirin 81 mg chewable tablet 81 mg PO DAILY 10/17/23
cetirizine 10 mg tablet (Zyrtec) 10 mg PO HSPRN PRN allergies 10/17/23
coenzyme Q10 100 mg capsule (Co Q-10) 250 mg PO DAILY@1000 10/17/23
polyethylene glycol 3350 17 gram oral powder packet (Miralax) 17 g PO DAILYPRN PRN constipation 10/17/23
amoxicillin 875 mg-potassium clavulanate 125 mg tablet 1 tab PO Q12H 10/24/23
atorvastatin 80 mg tablet 80 mg PO QPM 11/09/23
calcium carbonate (Calcium 600) 600 mg PO DAILY 11/09/23
vitamin C 250 mg-vitamin D3 3.75 mcg-herbal complex 212.5 mg capsule (Synogesic) 4 cap PO DAILY 11/09/23
Review of Systems
-
History Source: Patient
A 12 point ROS was completed and negative except as noted: Yes
Constitutional: Reports No Symptoms
EENT: Reports No Symptoms
Respiratory: Reports No Symptoms
Cardiac: Reports No Symptoms
Abdomen/GI: Reports No Symptoms
: Reports No Symptoms
Musculoskeletal: Reports No Symptoms
Skin: Reports No Symptoms
Neurological: Reports See HPI
Endocrine: Reports No Symptoms
Hematologic/Lymphatic: Reports No Symptoms
Psych: Reports No Symptoms
Physical Exam
Vital Signs
Vital Signs
Temp Pulse Resp BP Pulse Ox
98.1 F 61 13 125/77 98
11/09/23 17:01 11/09/23 19:15 11/09/23 19:15 11/09/23 19:00 11/09/23 19:15
Physical Exam
General: Well Developed, Well Nourished and No Apparent Distress
HEENT: NormoCephalic, Moist mucous membranes and Atraumatic
Respiratory: Clear
Cardiac: S1/S2 and Regular Rhythm; No Murmur or Rub
GI: Soft, Non Tender, Non Distended and Normal Bowel Sounds; No Organomegaly
Rectal: Deferred by Provider
Musculoskeletal: No Clubbing, No Cyanosis and No Edema
Skin: No Rash
Neuro: Nonfocal/grossly intact
Laboratory Results
-
11/09/23 17:10
11/09/23 17:10
Laboratory Results
Total Bilirubin 0.6 mg/dl (0.2-1.3) 11/09/23 17:10
AST 54 U/L (14-36) H 11/09/23 17:10
ALT 55 U/L (0-35) H 11/09/23 17:10
Alkaline Phosphatase 63 U/L (38-126) 11/09/23 17:10
Troponin I < 0.012 ng/ml 11/09/23 17:10
Data Reviewed
-
Lab Data: Labs Reviewed by me
Old Records: Reviewed
Impression/Plan
-
IMPRESSION:
PLAN:
# Dizziness/vertigo/shortness of breath after MARCELA today possibly side effect of anesthesia aggravating vestibular migraine/vestibular CVA
-Orthostatics negative
-IV fluids, meclizine, Ativan given
-Chest x-ray unremarkable
-CT head shows no acute intracranial abnormality
-Patient refusing Toradol and did not tolerate triptans in the past due to tachycardia
-Requesting just Fioricet at this time
-Check MRI to evaluate for posterior CVA
-Continue aspirin
-Neurology consulted
# Hypokalemia
-Replete potassium
# Transaminitis possibly secondary to Augmentin
-Continue to monitor
Recent pelvic fluid collection possibly abscess versus hematoma after recent pelvic floor surgery/hysterectomy
-Continue Augmentin which she finishes tomorrow
-Scheduled for surgery with gynecology next week
-Continue MiraLAX to prevent constipation before surgery
Patent randolph ovale
-Discovered on MARCELA today
-Plan for repair in November
History of CVA with right parietal infarcts
-Continue aspirin, statin
History of migraine
Hyperlipidemia
Fibromyalgia
Full code
DVT prophylaxis�SCDs
Regular diet
--- NOTE | 2023-11-09 23:30 | PTCARENOTE ---
Pt received from ED at 2330. Pt AAOX3, VSS, and walked into room. Pt receptive to room. Pt bed at lowest position and callbell within reach. Will continue with current plan of care. NIH 0. NSR on monitor.
[2023-11-10] VITALS (7 sets, daily range): BP systolic 101–122; BP diastolic 62–88; PULSE 85–124
[2023-11-10] MEDS: AUGMENTIN 875 MG/125 MG 1 TABLET PO ×3 (00:30→21:20)
[2023-11-10] MEDS: FIORICET 2 TAB PO (00:33)
[2023-11-10] MEDS: LIPITOR 80 MG PO ×2 (01:24→17:16)
[2023-11-10 08:44] LABS: Hematocrit 34.4 % (37.0-47.0); Hemoglobin 12.2 g/dL (12.0-16.0); Mean Corp Hgb Conc. 35.5 g/dL (33.0-37.0); Mean Corpuscular Hgb 29.5 pg (27.0-31.0); Mean Corpuscular Volume 83.3 fL (81.0-99.0); Mean Platelet Volume 9.7 fL (7.4-10.4); Platelet Count 215 10^3/uL (130-400); Red Blood Cell Count 4.13 10^6/uL (4.20-5.40); White Blood Cell Count 4.5 10^3/uL (4.8-10.8)
[2023-11-10 08:59] LABS: ALT (SGPT) 47 U/L (0-35); AST (SGOT) 37 U/L (14-36); Alkaline Phosphatase 72 U/L (38-126); Blood Urea Nitrogen 4 mg/dl (7-17); Calcium 9.5 mg/dl (8.4-10.2); Carbon Dioxide 27 mmol/L (22-30); Chloride 100 mmol/L (98-107); Estimated Creatinine Clearance 83 ml/min; Glucose 84 mg/dl (70-99); HDL Cholesterol 65 mg/dl; LDL Cholesterol, Calculated 81 mg/dl; Potassium 3.9 mmol/L (3.5-5.1); Sodium 135 mmol/L (135-145); Total Cholesterol 164 mg/dl (50-199); Total Protein 6.5 g/dl (6.3-8.2); Triglyceride 92 mg/dl (10-149); Very Low Density Lipoprotein 18 mg/dl (0-30); eGFR > 60.00
--- NOTE | 2023-11-10 09:15 | CON.NEURO ---
Neuro Assessment/Plan
Assessment
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 Testing for hypercoagulable state was unremarkable. The patient has increased risk
factors for stroke based on migraine with aura.
The patient's current symptoms may only represent BPPV, still possible the patient is experiencing acute ischemic stroke. Least likely that the patient is experiencing migraine with aura as etiology due to symptomatology beginning greater than 1
hour before headaches onset
Plan
Physical therapy evaluation
Provide ondansetron for both migraine and nausea; use of CGRP's as outpatient to remediate headache may be of greater benefit
Check MRI of brain as planned
No indication at this time for vascular imaging
Continue aspirin
If recurrent stroke, may need to move up procedure for closure of patent foramen ovale
Consultation
Order
Date of Consultation: 11/10/23
Requesting Provider: Hospitalist
Reason for Consult: Vertigo
Subjective/Objective
Subjective Data
Date of Service: November 10, 2023
Adapted from my office note 10/12/2023:
Adapted from inpatient consultation note
DATE/TIME OF CONSULTATION: 09/10/23
Reason for Consultation: Left hand weakness, slurred speech
This is a 63-year-old right-handed female who has presented to the hospital on 09/09/23 with report of left hand abnormality, slurred speech, and left facial drooping. Patient recently underwent HAILE and pelvic floor lift at [facility] on
08/28/23 for uterine prolapse. Postoperatively she experienced some complications including severe constipation, uterine retention (mix removed on 09/07/23), UTI, and left-sided SI joint pain thought to possibly be related to a suture near her
sciatic nerve.
Last week she notes 1-2 days of left-sided sciatica but currently she does not have any left leg discomfort. She notes a history of migraine with aura and since her cataract extraction in 02/2023 she has been seeing more floaters, but she has never
had any other stroke symptoms with headaches previously. She also notes a history of severe left neck pain in 2021 with residual mild left neck/jaw pain that is more prominent in the winter months/worse with wind exposure.
Patient reports that last evening (09/09/23) at 2030 she was at her baseline sitting on her couch. She stood up to go get ready for bed and tried to pick something up in her left hand and noticed that her hand was closed tightly and she was unable to
open it. She went to tell her daughter about her hand, and her daughter noted that her speech sounded slurred and her left face appeared droopy. Her symptoms lasted for about 4 minutes before completely resolving.
On arrival to the ER, NIHSS was 0. CT head was obtained and is negative for any acute abnormalities. She was not a candidate for TNK/IAT due to NIHSS 0, resolution of symptoms. She was loaded with aspirin 325mg in the ER.
Today (09/10/23), patient reports feeling at her baseline. She denies any headache, dizziness, speech/swallow difficulty, numbness, weakness, chest pain, palpitations, and shortness of breath.
She does report having a visual aura about 4 hours prior to this event. She still notes left entire buttock discomfort and vaginal pressure.
She had a CTA neck and MRI neck completed in 2021 that were unremarkable. She has been taking Flexeril, ibuprofen, and a steroid taper for her left buttock discomfort.
Would continue aspirin indefinitely
Increase home rosuvastatin dosing from 20 to 40 mg routinely
Continue decreasing prednisone dosing being utilized for post hysterectomy inflammation
Since hospitalization at :
10/2023
significant bruising
had severe headaches after hospitalization, now improved
Previous testing: blood work
CTA head and neck 09/[address] of head
MRI of brain Small acute/subacute infarcts in the right parietal lobe.
Prior medication(s): ASA, Clopidogrel, Rosuvastatin
Side-effects with medications: none
Previous treatment(s): therapy evaluation, cardiac monitoring
Frequency since hospitalization: N/A
Intensity since hospitalization: N/A
Duration: since 09/2023
Duration of symptom: unchanged since onset
Etiology: unclear currently; presumed to be thromboembolic
Quality: N/A
Associated symptom(s): dizziness
Improving factors: patient unaware of any
Worsening factors: patient unaware of any
Unchanged by: patient unaware of any
Severity: significant.
~~~~
Patient subsequently underwent MARCELA and she was found to have patent randoplh ovale with plan for repair November 2023. Blood work performed evaluating for hypercoagulability was unremarkable.
Immediately following the MARCELA, patient returned home until sudden sense of dizziness (4 hours after return home) worsening with standing up or moving her head.
She went to the bathroom and she could hardly make it back without holding onto things. Also experienced generalized weak with nausea, slight shortness of breath. 911 was activated, was found to have increase in HR sitting to standing. Three or
four hours later started developing a pulsating frontal and occipital headache, did have photophobia. Headache has persistent, intensity 2/10 currently, max of 8/10 earlier. Headache same as usual.
Dizziness does not feel like vertigo which she had before, patient not room spinning.
Dizziness was been persistent, with reduced nausea today (day after onset).
Objective Data
Vital Signs
Temp Pulse Resp BP Pulse Ox
36.4 C 67 16 115/78 95
11/10/23 07:20 11/10/23 07:20 11/10/23 07:20 11/10/23 07:20 11/10/23 07:20
Lab Results
11/10/23 07:38
11/10/23 07:38
Sodium 135 mmol/L (135-145) 11/10/23 07:38
Potassium 3.9 mmol/L (3.5-5.1) 11/10/23 07:38
BUN 4 mg/dl (7-17) L 11/10/23 07:38
Glucose 84 mg/dl (70-99) 11/10/23 07:38
Calcium 9.5 mg/dl (8.4-10.2) 11/10/23 07:38
LDL Cholesterol, Calc 81 mg/dl 11/10/23 07:38
Patient Allergies
Sulfa (Sulfonamide Antibiotics) Allergy (Verified 10/24/23 10:52)
Unknown
Review of Systems
-
History Source: Patient
All other systems: Reviewed and negative
EENT: Negative Swallowing Difficulty
Respiratory: Trouble Breathing
Cardiac: Negative Chest Pain
Abdomen/GI: Negative Incontinence of Stool
Genitourinary: Negative Incontinence
Musculoskeletal: Neck Pain; Negative Back Pain
Neuro: Dizzy and Headache
Physical Exam
-
General: No Apparent Distress and Appears Stated Age
Eyes: Round OU, [place] Conjunctivae and No Ptosis
HEENT: Anicteric and Moist Mucous Membranes
Neck: Full Range of Motion
Respiratory: No Dyspnea
Cardiac: No JVD
GI: Non-distended
Skin: Unremarkable
Extremities: No Clubbing, No Cyanosis and No Edema
Psych: Negative Intact Judgement/Insight
Extended Neurological Exam
Mood & Affect: Mood Unremarkable
Attention Span & Concentration: Awake, Alert, Interactive and No Difficulty with 2 Step Request
Memory: Unremarkable
Tremor: Hand Tremor Absent and Head Tremor Absent
Involuntary Movement: None
Speech: Quality Unremarkable and Quantity Unremarkable
Cranial Nerve II: Left Eye: Pupillary Reactivity Unremarkable, Pupillary Size Unremarkable and Visual Pearce Intact
Cranial Nerve II: Right Eye: Pupillary Reactivity Unremarkable, Pupillary Size Unremarkable and Visual Pearce Intact
Cranial Nerves III, IV, : Extraocular Movement: Extraocular Movement Full in all Directions
Cranial Nerve VII: Facial Symmetry: Normal Facial Symmetry
Cranial Nerve VIII: Hearing: Unremarkable Hearing to Normal Conversational Volume
Cranial Nerves IX, X: Palate Movement: Palate Elevation Symmetric
Cranial Nerve XI: Shoulder Shrug: Unremarkable
Muscle Strength, Overall: Full Throughout
Muscle Bulk & Tone: Tone Unremarkable
Pronator Drift: No Drift in Upper Extremities and No Drift in Lower Extremities
Deep Tendon Reflexes: Unremarkable Throughout
Touch Sensation: Unremarkable and Double Simultaneous Stimulation Unremarkable
Coordination: Ciikoo-mtsk-tddeow Testing Unremarkable
Babinski Sign: Absent Bilaterally
Data Reviewed
-
CT Head: Report Reviewed
Labs: Report Reviewed
Reviewed with: Physician and Patient
Old Records: Summarized
Medications
-
Active Medications
Generic Name Dose Route Start Last Admin
Trade Name Freq PRN Reason Stop Dose Admin
Acetaminophen/Butalbital/Caffeine 2 tab 11/09/23 23:38 11/10/23 00:33
Butalbit/Acetaminophen/Caffeine PO 12/07/23 23:37 2 tab
Q4HPRN PRN Administration
migraine
Amoxicillin/Clavulanate Potassium 1 tablet 11/09/23 23:38 11/10/23 00:30
Amoxicillin (875 Mg)/Clavulanate (125 Mg) Tablet PO 1 tablet
Q12 PURA Administration
Aspirin 81 mg 11/10/23 08:00
Aspirin 81 Mg Chewable Tablet PO 12/08/23 07:59
DAILY PURA
Atorvastatin Calcium 80 mg 11/10/23 18:00
Atorvastatin (Lipitor) 80 Mg Tablet PO 12/08/23 17:59
QPM PURA
Calcium Carbonate 500 mg 11/10/23 08:00
Calcium Carbonate 500 Mg Tablet PO 12/08/23 07:59
DAILY PURA
Cetirizine HCl 10 mg 11/09/23 23:38
Cetirizine Hcl 10 Mg Tablet PO 12/07/23 23:37
HSPRN PRN
allergies
Ondansetron HCl 4 mg 11/09/23 23:38
Ondansetron 4 Mg/2 Ml Vial IV 12/07/23 23:37
Q6HPRN PRN
NAUSEA/VOMITING
Polyethylene Glycol 17 grams 11/09/23 23:38
Polyethylene Glycol Powder 17 Grams Packet PO 12/07/23 23:37
DAILYPRN PRN
constipation
Sodium Chloride 0 flush 11/09/23 23:00
Sodium Chloride 0.9% (Flush) Syringe IV 12/07/23 22:59
PER PROTOCOL PURA
Home Medications
�Medication �Instructions �Recorded
aspirin 81 mg chewable tablet 81 mg PO DAILY Heart 10/17/23
Disease/Condition
cetirizine 10 mg tablet (Zyrtec) 10 mg PO HSPRN PRN allergies 10/17/23
coenzyme Q10 100 mg capsule (Co 250 mg PO DAILY@1000 Supplement 10/17/23
Q-10)
polyethylene glycol 3350 17 gram 17 g PO DAILYPRN PRN constipation 10/17/23
oral powder packet (Miralax)
amoxicillin 875 mg-potassium 1 tab PO Q12H Infection 10/24/23
clavulanate 125 mg tablet
atorvastatin 80 mg tablet 80 mg PO QPM High Cholesterol 11/09/23
calcium carbonate (Calcium 600) 600 mg PO DAILY Supplement 11/09/23
vitamin C 250 mg-vitamin D3 3.75 4 cap PO DAILY Supplement 11/09/23
mcg-herbal complex 212.5 mg
capsule (Synogesic)
Past History
Past History
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
ED Past Surgical History: Gynecological (Vaginal hysterectomy/pelvic floor left August 28, 2023) and Other (Right neck lymph nodes removed, Hemorrhoids)
Social History
Tobacco: Non-smoker
Alcohol: None
Personal:
Living: with family
Employment: Employed
Family History
Family History: Other (reviewed and non-contributory)
[2023-11-10] MEDS: LOW STRENGTH ASPIRIN 81 MG PO (09:17)
[2023-11-10] MEDS: OSCAL CAL 500 500 MG PO (09:17)
[2023-11-10 09:36] LABS: % Basophils 0.7 % (0-2); % Eosinophils 0.9 % (0-6); % Immature Granulocytes 0.2 % (0-0.5); % Lymphocytes 50.6 % (20.5-51.1); % Monocytes 5.7 % (1.7-9.3); % Neutrophils 41.9 % (42.2-75.2); Absolute Lymphocytes 2.3 10^3/uL (1.2-3.4); Absolute Monocytes 0.3 10^3/uL (0.1-0.6); Absolute Neutrophils 1.9 10^3/uL (1.4-6.5); Nucleated Red Blood Cells % 0 %
--- NOTE | 2023-11-10 11:43 | W.PN.HOSP.TC ---
Today's Communication/Plan
-
Monitor vital signs
see plan
MRI pending
Neurology following
Continue Augmentin for another day
Continue aspirin
Statin
Assessment / Plan
Assessment / Plan
General: Well Developed, Well Nourished and No Apparent Distress
HEENT: NormoCephalic, Moist mucous membranes and Atraumatic
Respiratory: Clear
Cardiac: S1/S2 and Regular Rhythm; No Murmur or Rub
GI: Soft, Non Tender, Non Distended and Normal Bowel Sounds
Musculoskeletal: No Edema
Neuro: Nonfocal/grossly intact
Dizziness/vertigo/shortness of breath after MARCELA possibly side effect of anesthesia aggravating vestibular migraine/vestibular CVA
-Orthostatics negative; continue to monitor orthos
-Chest x-ray unremarkable
-CT head shows no acute intracranial abnormality
-Patient refusing Toradol and did not tolerate triptans in the past due to tachycardia
-Requesting just Fioricet at this time
-Check MRI to evaluate for posterior CVA
-Continue aspirin
-Neurology following
# Hypokalemia
Resolved
# Transaminitis possibly secondary to Augmentin
-Continue to monitor
Recent pelvic fluid collection possibly abscess versus hematoma after recent pelvic floor surgery/hysterectomy
-Continue Augmentin which she finishes tomorrow
-Scheduled for surgery with gynecology next week
-Continue MiraLAX to prevent constipation before surgery
Patent randolph ovale
-Discovered on MARCELA done by Dr Posey
-Plan for repair in November
History of CVA with right parietal infarcts
-Continue aspirin, statin
History of migraine
Hyperlipidemia
Fibromyalgia
Full code
DVT prophylaxis�SCDs
Anticipated Discharge: Within 24 hours
Subjective/Interval History
-
Date of Service: November 10, 2023
Still has headache
Objective Data
-
Labs:
Laboratory Results
11/10/23
07:38
WBC 4.5 L
Hgb 12.2
Hct 34.4 L
Plt Count 215
Sodium 135
Potassium 3.9
Chloride 100
Carbon Dioxide 27
BUN 4 L
Creatinine 0.6
Glucose 84
Calcium 9.5
Total Bilirubin 1.0
AST 37 H
ALT 47 H
Alkaline Phosphatase 72
Vital Signs:
Vital Signs
Temp Pulse Resp BP Pulse Ox
98.0 F 85 16 111/74 97
11/10/23 11:25 11/10/23 11:25 11/10/23 11:25 11/10/23 11:25 11/10/23 11:25
[2023-11-10] MEDS: ANTIVERT 25 MG PO (12:58)
[2023-11-10] MEDS: ATIVAN 0.5 MG PO (13:24)
[2023-11-10 13:31] LABS: Glycohemoglobin (HgbA1c) 5.1 % (4.0-5.6)
--- NOTE | 2023-11-10 18:10 | CM ---
CM reviewed patient's chart. Spoke with patient at bedside. CM introduced self and role.
PCP: at [facility]
Pharmacy: [facility] in [place]
Living situation: Patient lives with her . It is a split-level home. There are two steps to enter.
Finances: Patient denies any social insecurities. She is able to afford her housing, clothing, medications, food, utilities and transportation. 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
DME/Ambulation: Patient ambulates independently. She does not own any DME.
Transportation: will provide transportation once patient is discharged.
Agreeable to home health care?: Yes, if needed.
ANTICIPATED DISCHARGE DISPOSITION:
Return to home with , when medically cleared.
CM will continue to follow case and available for further assistance.
--- NOTE | 2023-11-10 18:16 | CM ---
CM reviewed patient's chart. Spoke with patient at bedside. CM introduced self and role.
PCP: Dr.Robert Hatfield
Pharmacy: [facility] in [place]
Living situation: Patient lives with her and youngest daughter. It is a multi-level, colonial home. There are no steps to enter.
Finances: Patient denies any social insecurities. She is able to afford her housing, clothing, medications, food, utilities and transportation. She shared that it is become increasingly difficult to afford because of being laid off from work since
last February.
Patient has attempted to apply for MA, but was denied in the past, due to income.
DME/Ambulation: Patient ambulates independently. She does not own any DME.
Transportation: will provide transportation once patient is discharged.
Agreeable to home health care?: Yes, if needed.
ANTICIPATED DISCHARGE DISPOSITION:
Return to home with and daughter, when medically cleared.
CM will continue to follow case and available for further assistance.
[2023-11-10] MEDS: TYLENOL 1000 MG PO (23:41)
[2023-11-10] MEDS: COMPAZINE 5 MG IV (23:41)
[2023-11-11] VITALS (8 sets, daily range): BP systolic 78–108; BP diastolic 49–72; PULSE 75–108
[2023-11-11 02:32] LABS: Glucose - Point of Care 97 mg/dl (70-99)
[2023-11-11 03:00] LABS: Hematocrit 35.4 % (37.0-47.0); Hemoglobin 12.6 g/dL (12.0-16.0); Mean Corp Hgb Conc. 35.6 g/dL (33.0-37.0); Mean Corpuscular Hgb 29.6 pg (27.0-31.0); Mean Corpuscular Volume 83.1 fL (81.0-99.0); Mean Platelet Volume 9.4 fL (7.4-10.4); Platelet Count 230 10^3/uL (130-400); Red Blood Cell Count 4.26 10^6/uL (4.20-5.40); Red Cell Dist. Width 13.1 % (11.5-14.5); White Blood Cell Count 6.8 10^3/uL (4.8-10.8)
[2023-11-11 03:15] LABS: Blood Urea Nitrogen 13 mg/dl (7-17); Calcium 9.4 mg/dl (8.4-10.2); Carbon Dioxide 27 mmol/L (22-30); Chloride 98 mmol/L (98-107); Estimated Creatinine Clearance 71 ml/min; Glucose 106 mg/dl (70-99); Magnesium 2.2 mg/dl (1.6-2.3); Potassium 4.2 mmol/L (3.5-5.1); Sodium 135 mmol/L (135-145); eGFR > 60.00
--- NOTE | 2023-11-11 03:19 | FALL ---
Description of Fall: Coworker heard noise in room, pt. had unwitnessed fall on floor beside bed, pt. lying on her right side, pt. noted she hit her head, pt. felt dizzy, 70/40s, lethargic but answering questions called rapid response, CT head
ordered, labs, 500 ml bolus NSS.
Injuries Noted: no obvious injuries.
Action Taken: vs, accucheck, neurocheck, helped pt. back to bed, bed alarm applied, pt. taken to CT scan.
Name of Provider Notified: BJ Portillo
[2023-11-11] MEDS: NSS 500 IV (03:47)
--- NOTE | 2023-11-11 03:48 | W.PN.UPDATE ---
Addendum entered and electronically signed by BJ Null 11/11/23 07:00:
BP 95/63 MAP 74 HR 60 98% RA, CT head results pending.
Addendum entered and electronically signed by BJ Null 11/11/23 05:58:
NIH 0 at the time of the fall.
CT Head done, pending results. Labs wnl
Original Note:
Update Note
Progress Note Update
RN notified TAPE SEWER, patient insisting Fioricet for migraines. Advised Fioricet was discontinued by Neurologist and Zofran to be given for headache/nausea. Patient refused Zofran, and agreed for Compazine. Compazine 5mg IV dose given once along with
Tylenol.
DIVISION SUPERINTENDENT Called.
Patient had a fall. Patient seen and evaluated. Patient is AAOx3. states she was going to the bathroom, and felt dizzy and fell gently on the right side of the body hitting head on the floor, on ASA, Patient denies any headaches or dizziness,
nausea, by being in the bed at present. BP 70's /40's at first then noted to be 90's/60's, 40's-50's HR, 16, 96% RA. mild redness noted on Right frontal/parietal side, no bruises, cuts or swelling noted. CT head stat, CBC, BMP, Mag stat, NSS IV
bolus 500 CC ordered. Nurses reports they heard a big 'thud'. Discussed safety precautions with patient and nurses.
[2023-11-11 08:26] LABS: % Basophils 0.4 % (0-2); % Eosinophils 0.9 % (0-6); % Immature Granulocytes 0.3 % (0-0.5); % Lymphocytes 33.3 % (20.5-51.1); % Monocytes 5.5 % (1.7-9.3); % Neutrophils 59.6 % (42.2-75.2); Absolute Eosinophils 0.1 10^3/uL (0-0.7); Absolute Lymphocytes 2.3 10^3/uL (1.2-3.4); Absolute Monocytes 0.4 10^3/uL (0.1-0.6); Absolute Neutrophils 4.1 10^3/uL (1.4-6.5); Hematocrit 34.7 % (37.0-47.0); Hemoglobin 12.2 g/dL (12.0-16.0); Mean Corp Hgb Conc. 35.2 g/dL (33.0-37.0); Mean Corpuscular Hgb 30.3 pg (27.0-31.0); Mean Corpuscular Volume 86.1 fL (81.0-99.0); Mean Platelet Volume 10.1 fL (7.4-10.4); Nucleated Red Blood Cells % 0 %; Platelet Count 217 10^3/uL (130-400); Red Blood Cell Count 4.03 10^6/uL (4.20-5.40); Red Cell Dist. Width 13.1 % (11.5-14.5); White Blood Cell Count 6.9 10^3/uL (4.8-10.8)
[2023-11-11] MEDS: LOW STRENGTH ASPIRIN 81 MG PO (08:26)
[2023-11-11] MEDS: OSCAL CAL 500 500 MG PO (08:26)
[2023-11-11] MEDS: AUGMENTIN 875 MG/125 MG 1 TABLET PO (08:26)
[2023-11-11 08:29] LABS: ALT (SGPT) 37 U/L (0-35); AST (SGOT) 33 U/L (14-36); Albumin 3.8 g/dl (3.5-5.0); Alkaline Phosphatase 65 U/L (38-126); Blood Urea Nitrogen 13 mg/dl (7-17); Calcium 9.2 mg/dl (8.4-10.2); Carbon Dioxide 25 mmol/L (22-30); Chloride 99 mmol/L (98-107); Estimated Creatinine Clearance 83 ml/min; Glucose 86 mg/dl (70-99); Potassium 4.1 mmol/L (3.5-5.1); Sodium 132 mmol/L (135-145); Total Bilirubin 0.6 mg/dl (0.2-1.3); Total Protein 6.2 g/dl (6.3-8.2); eGFR > 60.00
--- NOTE | 2023-11-11 09:53 | W.PN.NEURO.1 ---
Today's Communication / Plan
-
OK use Meclizine
Physical therapy evaluation
Provide ondansetron for both migraine and nausea; use of CGRP class of medications as outpatient to remediate headache may be of greater benefit
Neuro Assessment/Plan
Assessment
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 Testing for hypercoagulable state was unremarkable. The patient has increased risk
factors for stroke based on migraine with aura.
The patient's current symptoms may only represent BPPV. Least likely that the patient is experiencing migraine with aura as etiology due to symptomatology beginning greater than 1 hour before headaches onset
MRI of brain was remarkable only for chronic lacunar infarct, there was no comment about the patient's recent right parietal ischemic stroke.
Plan
OK use Meclizine
Physical therapy evaluation
Provide ondansetron for both migraine and nausea; use of CGRP's as outpatient to remediate headache may be of greater benefit
If recurrent stroke, may need to move up procedure for closure of patent foramen ovale
Will follow as outpatient.
Subjective/Objective
Subjective Data
Date of Service: November 11, 2023
Dizziness improved. Improved headaches. Patient had an episode of falling last evening while getting up to go to the bathroom.
Objective Data
Vital Signs
Temp Pulse Resp BP Pulse Ox
36.4 C 62 16 97/60 94
11/11/23 07:56 11/11/23 07:56 11/11/23 07:56 11/11/23 07:56 11/11/23 07:56
Lab Results
11/11/23 05:57
11/11/23 05:57
Sodium 132 mmol/L (135-145) L 11/11/23 05:57
Potassium 4.1 mmol/L (3.5-5.1) 11/11/23 05:57
BUN 13 mg/dl (7-17) 11/11/23 05:57
Glucose 86 mg/dl (70-99) 11/11/23 05:57
Calcium 9.2 mg/dl (8.4-10.2) 11/11/23 05:57
LDL Cholesterol, Calc 81 mg/dl 11/10/23 07:38
Patient Allergies
Sulfa (Sulfonamide Antibiotics) Allergy (Verified 10/24/23 10:52)
Unknown
Review of Systems
-
History Source: Patient
All other systems: Reviewed and negative
EENT: Negative Tinnitis or Hearing Loss
Neuro: Negative Dizzy or Headache
Physical Exam
-
General: No Apparent Distress and Appears Stated Age
Eyes: Round OU, [place] Conjunctivae and No Ptosis
HEENT: Anicteric and Moist Mucous Membranes
Neck: Full Range of Motion
Respiratory: No Dyspnea
Cardiac: No JVD
GI: Non-distended
Skin: Unremarkable
Extremities: No Clubbing, No Cyanosis and No Edema
Psych: Negative Intact Judgement/Insight
Extended Neurological Exam
Mood & Affect: Mood Unremarkable
Attention Span & Concentration: Awake, Alert and Interactive
Memory: Unremarkable
Tremor: Hand Tremor Absent and Head Tremor Absent
Involuntary Movement: None
Speech: Quality Unremarkable and Quantity Unremarkable
Cranial Nerve II: Left Eye: Pupillary Size Unremarkable and Visual Pearce Grossly Intact
Cranial Nerve II: Right Eye: Pupillary Size Unremarkable and Visual Pearce Grossly Intact
Cranial Nerve VII: Facial Symmetry: Normal Facial Symmetry
Cranial Nerve VIII: Hearing: Unremarkable Hearing to Normal Conversational Volume
Data Reviewed
-
CT Head: Report Reviewed
MRI Head: Report Reviewed
Labs: Report Reviewed
Reviewed with: Patient
Old Records: Summarized
Past History
Past History
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
ED Past Surgical History: Gynecological (Vaginal hysterectomy/pelvic floor left August 28, 2023) and Other (Right neck lymph nodes removed, Hemorrhoids)
Social History
Tobacco: Non-smoker
Alcohol: None
Personal:
Living: with family
Employment: Employed
Family History
Family History: Other (reviewed and non-contributory)
Medications
-
Medications:
Generic Name Dose Route Start Last Admin
Trade Name Freq PRN Reason Stop Dose Admin
Amoxicillin/Clavulanate Potassium 1 tablet 11/09/23 23:38 11/11/23 08:26
Amoxicillin (875 Mg)/Clavulanate (125 Mg) Tablet PO 11/11/23 23:59 1 tablet
Q12 PURA Administration
Aspirin 81 mg 11/10/23 08:00 11/11/23 08:26
Aspirin 81 Mg Chewable Tablet PO 12/08/23 07:59 81 mg
DAILY PURA Administration
Atorvastatin Calcium 80 mg 11/10/23 18:00 11/10/23 17:16
Atorvastatin (Lipitor) 80 Mg Tablet PO 12/08/23 17:59 80 mg
QPM PURA Administration
Calcium Carbonate 500 mg 11/10/23 08:00 11/11/23 08:26
Calcium Carbonate 500 Mg Tablet PO 12/08/23 07:59 500 mg
DAILY PURA Administration
Cetirizine HCl 10 mg 11/09/23 23:38
Cetirizine Hcl 10 Mg Tablet PO 12/07/23 23:37
HSPRN PRN
allergies
Lorazepam 0.5 mg 11/10/23 09:49 11/10/23 13:24
Lorazepam 0.5 Mg Tablet PO 12/08/23 09:48 0.5 mg
ONCE PRN Administration
prior to MRI
Ondansetron HCl 4 mg 11/09/23 23:38
Ondansetron 4 Mg/2 Ml Vial IV 12/07/23 23:37
Q6HPRN PRN
NAUSEA/VOMITING
Polyethylene Glycol 17 grams 11/09/23 23:38
Polyethylene Glycol Powder 17 Grams Packet PO 12/07/23 23:37
DAILYPRN PRN
constipation
Sodium Chloride 0 flush 11/09/23 23:00
Sodium Chloride 0.9% (Flush) Syringe IV 12/07/23 22:59
PER PROTOCOL PURA
--- NOTE | 2023-11-11 12:25 | W.PN.HOSP.TC ---
Today's Communication/Plan
-
hydrate and repeat VS
Assessment / Plan
Assessment / Plan
63yo F with PMHx of CVA, rectal abscess, diverticulitis, HAILE/BSO, migraine came with dizziness started after MARCELA. Also had weakness over past few weeks since her d/c from [facility], where she is schedyled for rectal abscess drain on 11/13/23 and
still was on Abx. On admission orthostatics neg, MRI of the brain showed old 4mm lacunar stroke without new acute finddings. Will need to follow with neurologist as outpatient for mgmt of vestibular migraine. Already planned for PFO closure. Concern
for post-anesthesia dizziness since general nastesia used for MARCELA on . Patient had an episode of fall overnight on 11/11/23 with telemetry showing mild bradycardia. Patient is not on AV blocking meds, suspect episode of chronitropic
incompetance. patient improving generally and was asking to be d/c so she can make it for her scheduled procedure on Sunday.
No fevers and no WBC elevation concerning for developing infection
A/P:
#Dizziness/ vertigo after MARCELA - most likely postprocedural
#CHronitropic incompetence
avoid AVB agents
repeat vitals after bolus
Patient able to walk to the bathroom without symptoms if she is not rushing
MRI head without new acute fingings
#BPPV
#Vestibular migraine
Outpatient neurology
meclizine
#Hx of CVA
#Hx of recal abscess
#Chronic ALT elevation -since 2021
#PFO
cont home meds
follow with already established doctors
DVT ppx on lovenox
Full code
I have spent at least 36min reviewing chart, test results, communication with consultants and direct patient care
Anticipated Discharge: Within 24 hours
Subjective/Interval History
-
Date of Service: November 11, 2023
Objective Data
-
Labs:
Laboratory Results
11/11/23 11/11/23
02:52 05:57
WBC 6.8 6.9
Hgb 12.6 12.2
Hct 35.4 L 34.7 L
Plt Count 230 217
Sodium 135 132 L
Potassium 4.2 4.1
Chloride 98 99
Carbon Dioxide 27 25
BUN 13 13
Creatinine 0.7 0.6
Glucose 106 H 86
Calcium 9.4 9.2
Total Bilirubin 0.6
AST 33
ALT 37 H
Alkaline Phosphatase 65
Vital Signs:
Vital Signs
Temp Pulse Resp BP Pulse Ox
98.4 F 73 18 94/57 95
11/11/23 11:04 11/11/23 11:04 11/11/23 11:04 11/11/23 11:04 11/11/23 11:04
I&O
11/10/23 11/11/23 11/12/23
06:59 06:59 06:59
Intake Total 1020 / 1020
Balance 1020 / 1020
Review of Systems
-
History Source: Patient
Constitutional: Reports No Symptoms
Physical Exam
-
General: No Apparent Distress
HEENT: Normocephalic and Atraumatic
Respiratory: Clear to Auscultation; Negative Wheezes or Rales
Cardiac: Regular Rhythm
GI: Soft, Nontender and Nondistended
Genito-urinary: No Costovertebral Tender
Skin: Warm
Neuro: Awake, Alert, Oriented and AO x 3
Psych: Calm
[2023-11-11] MEDS: NSS 1000 IV (12:28)
--- NOTE | 2023-11-11 15:36 | W.DCSUMMARY ---
Discharge Summary
Discharge Data
Date of Admission: 11/09/23
Date of Discharge: 11/11/23
-
Pending Results: No
Hospital Course
63yo F with PMHx of CVA, rectal abscess, diverticulitis, HAILE/BSO, migraine came with dizziness started after MARCELA. Also had weakness over past few weeks since her d/c from [facility], where she is scheduled for rectal abscess drain on 11/13/23 and
still was on Abx. On admission orthostatics neg, MRI of the brain showed old 4mm lacunar stroke without new acute finddings. Will need to follow with neurologist as outpatient for mgmt of vestibular migraine. Already planned for PFO closure. Concern
for post-anesthesia dizziness since general anastesia used for MARCELA on . Patient had an episode of fall overnight on 11/11/23 with telemetry showing mild bradycardia. Patient is not on AV blocking meds, suspect episode of chronotropic
incompetence. patient improving generally and was asking to be d/c so she can make it for her scheduled procedure on Sunday.
No fevers and no WBC elevation concerning for developing infection
Negative orthostatics on the day of d/c
Medically stable for D/C. I have spent at least 38min preparing dc
Patient was managed for:
#Dizziness/ vertigo after MARCELA - most likely postprocedural
#Chronotropic incompetence
#BPPV
#Vestibular migraine
#Hx of CVA
#Hx of recal abscess
#Chronic ALT elevation -since 2021
#PFO
Discharge Plan
-
Patient Disposition: Home (Routine Discharge)
Discharge Diagnosis/Procedures: Dizziness
Diet: Regular
Activity: As tolerated
Driving Restrictions: As prior to admission
Bathing Restrictions: None
Referrals:
Homer Juan MD [Active] - in three to four weeks
Andre Hatfield DO [Family Provider] -
Prescriptions:
New
meclizine 25 mg tablet
25 mg PO BID PRN (Reason: dizziness) Qty: 20 0RF
ondansetron 4 mg tablet,disintegrating
4 mg PO Q8H PRN (Reason: nausea and vomiting) Qty: 20 0RF
Continued
amoxicillin-pot clavulanate 875-125 mg Tablet
1 tab PO Q12H
atorvastatin 80 mg Tablet
80 mg PO QPM
Synogesic 250 mg-3.75 mcg -212.5 mg Capsule
4 cap PO DAILY
polyethylene glycol 3350 [Miralax] 17 gram Powder In Packet
17 g PO DAILYPRN PRN (Reason: constipation)
cetirizine [Zyrtec] 10 mg Tablet
10 mg PO HSPRN PRN (Reason: allergies)
coenzyme Q10 [Co Q-10] 100 mg Capsule
250 mg PO DAILY@1000
aspirin 81 mg tablet,chewable
81 mg PO DAILY
calcium carbonate [Calcium 600] 600 mg calcium (1,500 mg) Tablet
600 mg PO DAILY
Discharge Orders:
Discharge Patient (As Directed); Ordered 11/11/23
Ordered By: Satish Green
Discharge Date and Time
Print Language: WELSH
== END 2023-11-11 17:05 | disposition home or self-care (01) | DRG 918 ==
LOC: 4 WEST ACU 22:52
PROVIDERS: Clinical Nurse Specialist Family Health; Internal Medicine; Nurse Practitioner Gerontology; ADMITTING PHYSICIAN Hospitalist; ATTENDING PHYSICIAN Internal Medicine; CONSULT PHYSICIAN Psychiatry & Neurology Neurology; EMERGENCY PHYSICIAN Emergency Medicine; FAMILY PHYSICIAN Family Medicine
DX: T88.59XA Other complications of anesthesia, initial encounter (principal); I45.89 Other specified conduction disorders; Q21.12 Patent foramen ovale; R42 Dizziness and giddiness; T41.45XA Adverse effect of unspecified anesthetic, initial encounter; Y92.239 Unspecified place in hospital as the place of occurrence of the external cause; M79.7 Fibromyalgia; R11.0 Nausea; R53.1 Weakness; E78.00 Pure hypercholesterolemia, unspecified; K64.9 Unspecified hemorrhoids; G43.809 Other migraine, not intractable, without status migrainosus; E87.6 Hypokalemia; R74.01 Elevation of levels of liver transaminase levels; R26.2 Difficulty in walking, not elsewhere classified; E78.5 Hyperlipidemia, unspecified; Z88.2 Allergy status to sulfonamides; Z87.19 Personal history of other diseases of the digestive system; Z90.710 Acquired absence of both cervix and uterus; Z86.73 Personal history of transient ischemic attack (TIA), and cerebral infarction without residual deficits; Z79.82 Long term (current) use of aspirin
CPT/HCPCS: 70450; 70551; 71046; 80048; 80053; 80061; 81003; 82962; 83036; 83735; 84484; 85025; 85027; 93005; 93312; 93320; 93325; 96361; 96374; 96375; 99285

== ENCOUNTER 2024-01-08 11:09 | Emergency (ER) | payer BC, SELFPAY ==
[2024-01-08 11:23] VITALS: BP 151/92
--- NOTE | 2024-01-08 11:40 | ED.GENMED ---
History of Present Illness
General
Chief Complaint: Chest Pain
Time Seen by Provider: 01/08/24 11:34
History of Present Illness
History of Present Illness:
TIME OF INITIAL ENCOUNTER: 11:40 AM
HPI: The patient presents with 4 days of left-sided chest discomfort that she feels is getting worse. The pain radiates into the back and into the abdomen. She states she is scheduled for PFO closure next week and is currently on baby aspirin with
no anticoagulation. The pain worsens to touch and with deep breath. She does not necessarily feel short of breath.
EXAM:
GENERAL: Well appearing but appears somewhat uncomfortable especially with movement
HEENT: Moist oral mucosa
CARDIOVASCULAR: No murmurs, normal heart rate, regular rhythm, moderate tenderness to palpation of the left anterior chest wall and in the periscapular region
PULMONARY: No respiratory distress, breath sounds are clear and equal
ABDOMEN: Soft with no peritoneal signs, no tenderness
NEUROLOGIC: Excellent strength all extremities, no coordination deficits
PSYCHIATRIC: Appropriate mental status, normal insight and judgement
EXTREMITIES: Nontender, no edema, moves all extremities equally
SKIN: No rash, no lesions
NUMBER AND COMPLEXITY OF PROBLEMS ADDRESSED AT THE ENCOUNTER
� Chronic conditions affecting care: TIA, hyperlipidemia, PFO
� Acute Exacerbation and/or Progression of Chronic Illness: This is an acute problem
� Differential Diagnosis includes: Costochondritis, chest wall pain, viral syndrome, ACS, PE
AMOUNT AND/OR COMPLEXITY OF DATA TO BE REVIEWED AND ANALYZED
� I performed an independent evaluation of and my interpretation is:
EKG: Sinus 77, normal axis, no acute ST abnormality
CT:
X-rays: Chest x-ray shows no acute abnormality
Laboratory Studies: White count 4.4, age-adjusted D-dimer is reassuring, troponin less than 0.012
Other:
� Review of other/old records: I reviewed records, the patient was here with TIA over the summer and postoperative abscess
� Clinical information was obtained by an independent historian: None needed
� Prescriptions/Medications Considered but not given: Considered narcotic analgesia however the patient declines; also consider steroids over ultimately will try Flexeril instead
� Further testing considered but not performed: Considered CT imaging however the patient had a normal chest x-ray, and D-dimer is reassuring; did not feel the radiation of a CT is worth the risks as I feel there is a very low
yield study
RISK OF COMPLICATIONS AND/OR MORBIDITY OR MORTALITY OF PATIENT MANAGEMENT
� Social determinants of health affecting care: Lives at home
� Discussion with other providers:
� Escalation of care including admission/observation vs risk of discharge considered: Lab work and imaging are reassuring. Suspect musculoskeletal etiology. Toradol was given.
ANY OTHER UPDATES:
12:30 PM: Patient reports no improvement after Toradol was given. Will add Flexeril.
Past History
Past History
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
ED Past Surgical History: Gynecological (Vaginal hysterectomy/pelvic floor left August 28, 2023) and Other (Right neck lymph nodes removed, Hemorrhoids)
Social History
Tobacco: Non-smoker
Alcohol: None
Personal:
Living: with family
Employment: Employed
Family History
Family History: Other (reviewed and non-contributory)
Phy Exam
Physical Exam
Physical Exam:
See HPI
Scores
Heart Score for Chest Pain Patients
STEMI patient?: Not applicable
Course
Orders/Labs/Results
Orders:
Orders
01/08/24 11:12
EKG [Electrocardiogram (*1)] Urgent
Reason for Study: Chest Pain
EKG- Treatment ONCE
01/08/24 11:34
IV Insert/Care/Rem.- Treatment PRN
01/08/24 11:42
D-Dimer Urgent
01/08/24 11:43
Complete Blood Count/With Diff Urgent
Comprehensive Metabolic Panel Urgent
Troponin I Urgent
01/08/24 11:44
Ketorolac [Toradol] 15 mg IV NOW STA
CR Chest - 2 Views Urgent
Comment:
Reason For Exam: L pain
Abnormal Lab Results
01/08/24 01/08/24
11:42 11:43
WBC 4.4 L 10^3/uL
(4.8-10.8)
D-Dimer 0.57 H ug/mlFEU
(0.00-0.50)
01/08/24 11:43
01/08/24 11:43
Vital Signs
Initial and Last Documented VS:
Initial Vital Signs
Temp Pulse Resp BP Pulse Ox
98.8 F 78 18 151/92 99
01/08/24 11:23 01/08/24 11:23 01/08/24 11:23 01/08/24 11:23 01/08/24 11:23
Last Documented Vital Signs
Temp Pulse Resp BP Pulse Ox
98.8 F 69 16 123/88 98
01/08/24 11:23 01/08/24 12:00 01/08/24 12:00 01/08/24 12:00 01/08/24 12:00
*Critical Care Note
Total Time (30-74mins, 75-104mins- exclusive of procedures): Not Applicable
ED Attending Note
-
Portions of this chart may have been created with voice recognition software.� Occasional wrong word or��sound alike� substitutions may have occurred due to the inherent limitations of voice recognition software.
Discharge Plan
Departure
Patient Disposition: Home (Routine Discharge)
Date of Disposition: 01/08/24
Time of Disposition: 12:41
Patient with high blood pressure during this ER visit?: Yes
Discharge Problem:
Musculoskeletal chest pain
Instructions: Chest Pain That Is Not Caused by the Heart (DC), BLOOD PRESSURE
Prescriptions:
New
cyclobenzaprine 10 mg tablet
10 mg PO TIDPRN PRN (Reason: muscle spasm) Qty: 15 0RF
No Action
amoxicillin-pot clavulanate 875-125 mg Tablet
1 tab PO Q12H
atorvastatin 80 mg Tablet
80 mg PO QPM
Synogesic 250 mg-3.75 mcg -212.5 mg Capsule
4 cap PO DAILY
polyethylene glycol 3350 [Miralax] 17 gram Powder In Packet
17 g PO DAILYPRN PRN (Reason: constipation)
cetirizine [Zyrtec] 10 mg Tablet
10 mg PO HSPRN PRN (Reason: allergies)
coenzyme Q10 [Co Q-10] 100 mg Capsule
250 mg PO DAILY@1000
aspirin 81 mg tablet,chewable
81 mg PO DAILY
calcium carbonate [Calcium 600] 600 mg calcium (1,500 mg) Tablet
600 mg PO DAILY
meclizine 25 mg tablet
25 mg PO BID PRN (Reason: dizziness) Qty: 20 0RF
ondansetron 4 mg tablet,disintegrating
4 mg PO Q8H PRN (Reason: nausea and vomiting) Qty: 20 0RF
Referrals:
Andre Hatfield, [Family Provider] -
Activity Restrictions/Additional Instructions:
I see no abnormality on the chest x-ray. Cardiac blood work shows no sign of heart attack. D-dimer screening test, when age-adjusted, shows no sign of blood clot. I sent a prescription for Flexeril to your pharmacy.
Interventions
Interventions:
*Risk Screen - Suicide Last Done: 01/08/24 11:23
*General Assessment Last Done: 01/08/24 11:37
*Neglect/Abuse Screening Last Done: 01/08/24 11:23
*ED COVID-19 Vaccine History Last Done: 01/08/24 11:23
*Nursing Disposition Last Done: 01/08/24 12:50
ED- Cardiac Assessment Last Done: 01/08/24 11:37
Discharge Date and Time
Discharge Date/Time: 01/08/24 12:50
Print Language: PORTUGUESE
[2024-01-08] MEDS: TORADOL 15 MG IV (11:48)
[2024-01-08 11:59] LABS: % Basophils 0.7 % (0-2); % Eosinophils 0.7 % (0-6); % Immature Granulocytes 0.2 % (0-0.5); % Lymphocytes 37.4 % (20.5-51.1); % Monocytes 5.2 % (1.7-9.3); % Neutrophils 55.8 % (42.2-75.2); Absolute Lymphocytes 1.7 10^3/uL (1.2-3.4); Absolute Monocytes 0.2 10^3/uL (0.1-0.6); Absolute Neutrophils 2.5 10^3/uL (1.4-6.5); Hematocrit 38.8 % (37.0-47.0); Hemoglobin 12.8 g/dL (12.0-16.0); Mean Corpuscular Hgb 28.6 pg (27.0-31.0); Mean Corpuscular Volume 86.6 fL (81.0-99.0); Nucleated Red Blood Cells % 0 %; Platelet Count 172 10^3/uL (130-400); Red Blood Cell Count 4.48 10^6/uL (4.20-5.40); Red Cell Dist. Width 13.7 % (11.5-14.5); White Blood Cell Count 4.4 10^3/uL (4.8-10.8)
[2024-01-08 12:00] VITALS: BP 123/88
[2024-01-08 12:05] LABS: D-Dimer 0.57 ug/mlFEU (0.00-0.50)
[2024-01-08 12:05] LABS: ALT (SGPT) 29 U/L (0-35); AST (SGOT) 32 U/L (14-36); Albumin 4.7 g/dl (3.5-5.0); Alkaline Phosphatase 63 U/L (38-126); Blood Urea Nitrogen 11 mg/dl (7-17); Calcium 9.9 mg/dl (8.4-10.2); Carbon Dioxide 28 mmol/L (22-30); Chloride 102 mmol/L (98-107); Glucose 94 mg/dl (70-99); Potassium 4.1 mmol/L (3.5-5.1); Sodium 142 mmol/L (135-145); Total Bilirubin 0.7 mg/dl (0.2-1.3); Total Protein 7.3 g/dl (6.3-8.2); eGFR > 60.00
[2024-01-08 12:16] LABS: Troponin I < 0.012 ng/ml
== END 2024-01-08 12:50 | disposition home or self-care (01) ==
LOC: EMR 11:09
PROVIDERS: EMERGENCY PHYSICIAN Emergency Medicine; FAMILY PHYSICIAN Family Medicine
DX: R07.89 Other chest pain (principal); E78.00 Pure hypercholesterolemia, unspecified; Z86.73 Personal history of transient ischemic attack (TIA), and cerebral infarction without residual deficits; Z87.19 Personal history of other diseases of the digestive system; Z90.710 Acquired absence of both cervix and uterus
CPT/HCPCS: 99283; 96374; 71046; 80053; 84484; 85025; 85379; 93005

== ENCOUNTER 2024-01-16 06:02 | Day surgery (SDC) | payer BC, SELFPAY ==
[2024-01-16] VITALS (28 sets, daily range): BP systolic 58–136; BP diastolic 40–109; BMI 20.7
[2024-01-16] MEDS: ANCEF 10 IV (07:23)
[2024-01-16 09:01] LABS: ACT-LR - POC 343 Seconds (116-155)
--- NOTE | 2024-01-16 09:53 | ITS.CL.PN ---
[facility]ooter - Procedure Note
Procedure
Procedure Note:
Patent Foramen Ovale Closure
Date of procedure: 01/16/2024
Referring physician: Belle Posey M.D.
Pre-op diagnosis: PFO.
Post-op diagnosis: PFO.
Indication: Paradoxical CVA.
Procedure performed: PFO closure.
physician surgeon: Roderick Tolbert D.O.
Type of echocardiography: 8 [place]uran Intracardiac echocardiography (ICE).
Flat Drier: Roderick Tolbert D.O.
Access:
1. 9 [place]uran 23 cm sheath in the left common femoral vein using a micropuncture kit under US guidance.
2. 9 [place] Trevisio sheath in the right common femoral vein using a micropuncture kit under US guidance.
Procedure:
The patient was brought to the interventional cardiology suite in fasting state. The patient was given 600 mg of clopidogrel and 2 g of cefazolin IV. After performing a timeout the patient was given conscious sedation. Bilateral femoral areas were
prepped and draped in standard sterile fashion.
The left femoral vein was accessed using a modified Seldinger technique. A 6 [place]uran sheath was advanced into the left femoral vein. A standard J-wire was advanced up into the inferior vena cava up to the level right atrium. The 6 [place]uran sheath was
withdrawn and the vein was pre-closed with a Perc-Close device. A 9 [place]uran 23 cm sheath was advanced from the left femoral vein into the inferior vena cava. The ICE probe was advanced through this long sheath and up to the level right atrium.
Using ICE, we were able to identify the interatrial septum and is associated defect.
The right femoral vein was accessed using a modified Seldinger technique and a 6 [place]uran sheath was placed. The right vein was pre-closed with a Perc-Close device. IV heparin was given to achieve an ACT greater than 250 seconds. A standard J-wire
was advanced from the right femoral vein and up into the superior vena cava and a multipurpose catheter was advanced over this wire. The J-wire was removed and catheter was flushed. An angled Glidewire was advanced through the multipurpose catheter
though did not leave the catheter tip. The multipurpose catheter was slowly withdrawn from the superior vena cava facing slightly posterior and medial. The multipurpose catheter settled in the area of the PFO. The angled Glidewire was advanced
through the defect and into the left superior pulmonary vein. The multipurpose catheter was advanced over the Glidewire into the left upper pulmonary vein. The Glidewire was removed and the catheter was flushed. Heparin 6000 units was given.
A Isaac wire was advanced through the multipurpose catheter and into the left upper pulmonary vein. The multipurpose catheter and the 6 [place]uran sheath were removed. The 9 [place]uran Trevisio delivery sheath was advanced over the Isaac wire into the
left atrium. After ensuring good placement, the dilator and the Isaac wire were slowly removed and the sheath was de-aired and flushed. Left atrial pressure was obtained.
On the back table, we turned our attention to prepping the closure device. A #30 PFO Amplatzer Talisman device was placed in a bowl of heparinized saline. The Tuohy-Jennifer valve and its extension were appropriately flushed. The device was submerged
in water and the valve and extension were slowly flush with water while the occlusion device was retracted into it, ensuring that the device was completely de-aired.
After ensuring that the ACT was therapeutic, we connected the sheath with the closure device assembly with a wet to wet connection. The occluder was advanced through the sheath and into the left atrium. Left atrial disc was deployed. The entire
assembly was retracted until the left atrial disc was firmly against the interatrial wall. The right atrial disc was deployed under tension and allowed to settle on the right atrial side of the septum.
Intracardiac echocardiographic images were obtained in multiple views showing good placement of the occlusion device. The interatrial septum is clearly visible between the 2 discs. The discs do not appear to be interfering with the aorta. After
performing appropriate pushing and pulling of the device to ensure good placement ([place] wiggle), the device was released. Once again, echocardiography confirmed good placement.
The Trevisio sheath was removed from the right femoral vein and the Perc-Close was tightened with good hemostasis. Additional manual pressure was held for 10 minutes.
The ICE catheter was withdrawn. The left femoral sheath was removed and the Perc-Close was tightened with good hemostasis. Additional manual pressure was held for 10 minutes.
Hemodynamics:
RA (a/v/x, mmHg):
RV (s/x, mmHg): Not obtained.
PA (s/d/x, mmHg): Not obtained.
PCWP (a/v/x, mmHg): Not obtained.
LA (a/v/x, mmHg):
LV (s/x, mmHg): Not obtained.
Ao (s/d/x, mmHg): Not obtained.
Oxygen Saturation (%):
RA: Not obtained.
RV: Not obtained.
PA: Not obtained.
PCWP: Not obtained.
LA: 99.6
LV: Not obtained.
Ao: 98 (noninvasive).
Radiation:
Dose (mGy): 27.03
DAP (Gy/cm2): 4.3015
Fluoroscopy Time (minutes): 10.9
Sedation (minutes): 62
Conclusions:
1. Successful ICE guided PFO closure using a #30 Amplatzer PFO device with no acute complications
Recommendations:
1. Routine care post PFO closure. Admit for overnight observation.
2. Limited weight bearing for 2 days.
3. DAPT with aspirin and clopidogrel for 3 months, followed by aspirin indefinitely.
4. Limited echocardiogram with agitated saline contrast tomorrow morning.
5. Repeat echocardiogram in 6 months.
Roderick Tolbert DO, FACC, FACP
Copy to: Belle Posey M.D., Andre Hatfield D.O.
--- NOTE | 2024-01-16 11:33 | CM ---
CM following for DC planning needs.
Attempted to meet w/ patient; pt. was sleeping-did not disturb.
Pt. was hospitalized several months prior. She resides w/ son and dtr. in a private, 2 story home. Functionally, patient is indep. at baseline w/ ADLs, mobility without the use of any assisted device.
Antic. HOME once medically stable, without needs.
Will remain avail.
--- NOTE | 2024-01-16 11:37 | PTCARENOTE ---
Rec'd pt from [facility]. Colton harrison is c/d/i. R christy w/ olisae. Manual pressure held for 10 min. Tele- SR. Pt has no c/o pain/discomfort. Activity restrictions reviewed w/ pt. Verbalizes understanding. Call milena w/in reach.
[2024-01-16] MEDS: FLEXERIL 10 MG PO ×2 (12:39→21:27)
[2024-01-16] MEDS: ULTRAM 50 MG PO (12:39)
--- NOTE | 2024-01-16 13:00 | PTCARENOTE ---
R groin continues to ooze. Manual pressure held. Moses Her notified and at bedside. Pt c/o pain/pressure d/t not being able to urinate while lying flat. One time straight cath ordered and performed- 400 cc out. Dsg changed; c/d/i. Pt also c/o back
pain; Tramadol and Flexeril ordered and administered. See MAY.
--- NOTE | 2024-01-16 14:11 | PTCARENOTE ---
R groin continues to ooze. Tomasz at bedside holding manual pressure. Epi/Lido syringe administered at R groin site and additional pressure held. Pt BP dropped to 58/45. IVF administered. EKG obtained. Repeat- BP 114/69. R groin site redressed;
c/d/i. Activity restrictions reviewed w/ pt. Verbalizes understanding. Call milena w/in reach.
--- NOTE | 2024-01-16 14:45 | W.PN.UPDATE ---
Update Note
Progress Note Update
I was called to the bedside to evaluate the patient's persistent loose from the right femoral venous access.
On inspection, the patient had persistent, low-level blood loss from the access site. This appeared to be too low flow to be due to the femoral venipuncture. I suspected track ooze.
Additional pressure was held for several minutes. While I was holding pressure, the patient experienced a vagal episode, with blood pressures dipping down to 60/40.
The patient was put in a recumbent position and IV fluids were administered. EKG showed sinus rhythm with PACs without any significant ischemic findings.
Using conservative measures, the vagal episode resolved.
I administered 10 cc of lidocaine with epinephrine to the access site area. Just combined with an additional 15 minutes of manual pressure, the track ooze resolved.
--- NOTE | 2024-01-16 16:29 | PTCARENOTE ---
L groin w/ small hematoma noted. Manual pressure held and new dsg placed. Site is c/d/bill Her notified.
--- NOTE | 2024-01-16 16:39 | PTCARENOTE ---
Pt OOB to bedside commode. Pt tolerated.
[2024-01-16] MEDS: ANCEF 5 IV (16:49)
[2024-01-16] MEDS: AUGMENTIN 875 MG/125 MG 1 TABLET PO (16:50)
[2024-01-16] MEDS: PEPCID 20 MG PO (16:51)
[2024-01-16] MEDS: LIPITOR 80 MG PO (16:51)
[2024-01-16] MEDS: AUGMENTIN 875 MG/125 MG PO (21:23)
[2024-01-16] MEDS: LEVAQUIN 750 MG PO (21:27)
--- NOTE | 2024-01-16 21:50 | PTCARENOTE ---
received the patient at the change of shift. AAOx3. patient states feeling nauseous-which resolved prior to assessment. otherwise, patient states just being 'tired.' 'its been a long day.' SR 70s. bp stable. b/l groin sites intact-tender to touch.
+ pulses. PRN Flexeril given per patients request, see mar. ambulating independently in the room. denies any lightheadedness/dizziness. educated to notify RN with any changes. call abbott within reach.
[2024-01-16] MEDS: ZOFRAN 4 MG IV (22:45)
--- NOTE | 2024-01-16 23:08 | PTCARENOTE ---
patient complaining of nausea. updated Frank santos ordered and given, see mar. b/l groins intact-no change. denies any abdominal/back pain. VSS. educated patient to inform RN with any new changes. call abbott within reach.
[2024-01-17 04:32] VITALS: BP 99/76
[2024-01-17 05:01] LABS: Hematocrit 31.6 % (37.0-47.0); Hemoglobin 10.8 g/dL (12.0-16.0); Mean Corp Hgb Conc. 34.2 g/dL (33.0-37.0); Mean Corpuscular Hgb 27.6 pg (27.0-31.0); Mean Corpuscular Volume 80.6 fL (81.0-99.0); Mean Platelet Volume 9.8 fL (7.4-10.4); Platelet Count 169 10^3/uL (130-400); Red Blood Cell Count 3.92 10^6/uL (4.20-5.40); Red Cell Dist. Width 13.3 % (11.5-14.5); White Blood Cell Count 5.3 10^3/uL (4.8-10.8)
[2024-01-17 05:26] LABS: Blood Urea Nitrogen 9 mg/dl (7-17); Calcium 9.1 mg/dl (8.4-10.2); Carbon Dioxide 23 mmol/L (22-30); Chloride 103 mmol/L (98-107); Estimated Creatinine Clearance 81 ml/min; Glucose 102 mg/dl (70-99); Magnesium 2.1 mg/dl (1.6-2.3); Sodium 138 mmol/L (135-145); eGFR > 60.00
--- NOTE | 2024-01-17 07:30 | W.PN.CD ---
Today's Communication / Plan
-
TTE.
DAPT for 3 months, followed by aspirin indefinitely.
Discharge planning.
Impression / Plan
-
Impression/Plan: 63 y/o female with HLD and PFO with CVA admitted for elective PFO closure, complicated by track ooze and vasovagal reaction.
#PFO
-Chronic.
-RoPE = 6.
-S/P #30 Amplatzer PFO closure device, 01/16/2024.
-Loaded with clopidogrel in the lab. DAPT for 3 months, followed by aspirin indefinitely.
-TTE this morning.
#Vasovagal reaction
-Bilateral femoral veins closed with perc-close devices.
-I will note that the right femoral vein was very superficial and the perc-close strings had to be cut close to the skin with a scalpel.
-Track ooze yesterday. This was treated with pressure and lidocaine with epinephrine.
-Patient developed a vasovagal reaction. This was treated conservatively with recumbent position and IV fluids with recovery.
#Hx of CVA
-Chronic.
-DAPT after PFO closure, followed by ASA indefinitely.
#HLD
-Chronic.
-Continue atorvastatin 80 mg daily.
#PPx
-SCD's/ambulation for DVT/VTE.
-Home PPI for GERD.
#Dispo
-IVU status.
-Discharge pending echo results.
Subjective/Interval History:
PFO closure yesterday.
Track ooze treated with pressure and lidocaine with epinephrine.
Vasovagal episode during manual pressure.
Feels well this morning.
Physical Exam
Vital Signs/Labs
Vital Signs
Temp Pulse Resp BP Pulse Ox
36.7 C 70 16 99/76 96
01/17/24 05:11 01/17/24 05:00 01/17/24 05:11 01/17/24 04:32 01/17/24 05:11
01/15/24 01/16/24 01/17/24
11:59 11:59 11:59
Actual Weight 53.1 kg
01/17/24 04:34
01/17/24 04:34
Magnesium 2.1 mg/dl (1.6-2.3) 01/17/24 04:34
Physical Exam
Constitutional: No acute distress and Comfortable
EENT: Anicteric and Moist mucous membranes
Cardiovascular: Rhythm & rate is regular, Pedal edema is absent, JVD pressure is normal, S1S2 is normal and Murmur/rub/gallop absent
Respiratory: Respiratory effort normal, Lungs clear to auscul., Wheeze Absent, Crackles Absent and Rhonchi Absent
GI: Soft, Distention absent, Flat, Non tender and Normal bowel sounds
Neuro/Psych: AO x 3
Other: Cath Site (Bilateral femoral vein access sites are C/D/I. Access sites are mildly tender, R > L.)
Data Reviewed
-
Date of Service: January 17, 2024
Medical Decision Making: Reviewed Test Results, Independent Historian Assessment and Test Interpretation
EKG: Tracing Personally Visualized and interpreted and Report Reviewed by me
Echo: Ordered by me
Medical Tests (PFT, Pathology etc): Image Personally Visualized and interpreted and Report Reviewed by me
Labs: Labs Reviewed by me
Old Records: Reviewed
[2024-01-17 07:36] VITALS: BP 97/66
[2024-01-17] MEDS: PROTONIX 40 MG PO (08:30)
[2024-01-17] MEDS: PLAVIX 75 MG PO (08:30)
[2024-01-17] MEDS: ASPIR LOW (ENTERIC COATED) 81 MG PO (08:30)
[2024-01-17] MEDS: AUGMENTIN 875 MG/125 MG 1 TABLET PO (08:30)
--- NOTE | 2024-01-17 09:21 | PTCARENOTE ---
Resumed care of patient from previous RN. Bilteral groin sites c/d/i. NSR. RA. no pain. Call milena w/in reach. pt sent for echo.
[2024-01-17 11:37] VITALS: BP 97/73
--- NOTE | 2024-01-17 13:16 | CM ---
CM following for DC planning needs.
Met w/ patient at bedside. She reports that she is feeling well and is hopeful for DC to home soon.
We reviewed prior level of functioning and living situation. Pt. resides w/ spouse and dtr. in a private home. She is functionally indep. at baseline w/ ADLs, mobility without the use of any assisted device.
Pt. has transportation home.
Anticipated DC plan is for home, no needs.
Will remain avail. for any needs that may arise.
--- NOTE | 2024-01-17 15:32 | W.DS.TRANS ---
DC Summary - Lead Radiologic Technologist
-
Discharge Instructions:
Discharge Diagnosis/Procedures PFO closure
Diet Low Cholesterol
Driving Restrictions No driving for 24 hours
Instructions:
Stand-Alone Forms: DC Instructions- Cath/EP Lab
Changes to Home Medications: Yes
Discharge Medications:
DC Medications w/original date entered in [employer]
cetirizine 10 mg tablet (Zyrtec) 10 mg PO HSPRN PRN allergies 10/17/23
coenzyme Q10 100 mg capsule (Co Q-10) 300 mg PO DAILY@1000 Supplement 10/17/23
polyethylene glycol 3350 17 gram oral powder packet (Miralax) 17 g PO DAILYPRN PRN constipation 10/17/23
amoxicillin 875 mg-potassium clavulanate 125 mg tablet 1 tab PO Q12H Infection 10/24/23
atorvastatin 80 mg tablet 80 mg PO QPM High Cholesterol 11/09/23
calcium carbonate (Calcium 600) 600 mg PO DAILY Supplement 11/09/23
cyclobenzaprine 10 mg tablet 10 mg PO TIDPRN PRN muscle spasm #15 tabs 01/08/24
aspirin 81 mg tablet,delayed release 81 mg PO DAILY 01/16/24
bifjenl-oepeilqcmknsq-clpqulht 250 mg-250 mg-65 mg tablet (Excedrin Migraine) 1 tab PO DAILYPRN PRN headache 01/16/24
famotidine 20 mg tablet 20 mg PO QPM 01/16/24
levofloxacin 750 mg tablet 750 mg PO HS 01/16/24
omeprazole 20 mg tablet,delayed release 20 mg PO DAILY 01/16/24
clopidogrel 75 mg tablet 75 mg PO DAILY #90 tabs 01/17/24
Home Medication Changes
new to plavix
Pending Results: No
[2024-01-17 15:53] VITALS: BP 112/65
== END 2024-01-17 16:50 | disposition home or self-care (01) ==
LOC: CATH 06:02
PROVIDERS: Nurse Practitioner Adult Health; ATTENDING PHYSICIAN Internal Medicine Cardiovascular Disease; FAMILY PHYSICIAN Family Medicine; OTHER PHYSICIAN Internal Medicine Cardiovascular Disease
DX: Q21.12 Patent foramen ovale (principal); S30.1XXA Contusion of abdominal wall, initial encounter; Y83.8 Other surgical procedures as the cause of abnormal reaction of the patient, or of later complication, without mention of misadventure at the time of the procedure; R55 Syncope and collapse; E78.5 Hyperlipidemia, unspecified; Z86.73 Personal history of transient ischemic attack (TIA), and cerebral infarction without residual deficits; I95.9 Hypotension, unspecified; Z79.82 Long term (current) use of aspirin; Z79.02 Long term (current) use of antithrombotics/antiplatelets; I49.1 Atrial premature depolarization; K21.9 Gastro-esophageal reflux disease without esophagitis; Z79.899 Other long term (current) drug therapy
CPT/HCPCS: 93580; 93306; 80048; 83735; 85027; 85347; 86850; 86900; 86901; 93005; C1759; C1760; C1817; C1892; C1894

== ENCOUNTER 2024-07-25 12:37 | Emergency (ER) | payer OTHER, SELFPAY ==
[2024-07-25 12:45] VITALS: BP 130/92
[2024-07-25 13:00] LABS: % Basophils 0.6 % (0-2); % Immature Granulocytes 0.2 % (0-0.5); % Monocytes 5.2 % (1.7-9.3); Absolute Eosinophils 0.1 10^3/uL (0-0.7); Absolute Lymphocytes 2.3 10^3/uL (1.2-3.4); Absolute Monocytes 0.3 10^3/uL (0.1-0.6); Absolute Neutrophils 2.5 10^3/uL (1.4-6.5); Hematocrit 39.8 % (37.0-47.0); Hemoglobin 13.6 g/dL (12.0-16.0); Mean Corp Hgb Conc. 34.2 g/dL (33.0-37.0); Mean Corpuscular Hgb 29.6 pg (27.0-31.0); Mean Corpuscular Volume 86.5 fL (81.0-99.0); Mean Platelet Volume 9.7 fL (7.4-10.4); Nucleated Red Blood Cells % 0 %; Platelet Count 223 10^3/uL (130-400); Red Cell Dist. Width 14.1 % (11.5-14.5); White Blood Cell Count 5.2 10^3/uL (4.8-10.8)
[2024-07-25 13:24] LABS: ALT (SGPT) 71 U/L (0-35); AST (SGOT) 58 U/L (14-36); Albumin 4.8 g/dl (3.5-5.0); Alkaline Phosphatase 67 U/L (38-126); Blood Urea Nitrogen 19 mg/dl (7-17); Carbon Dioxide 30 mmol/L (22-30); Chloride 104 mmol/L (98-107); Glucose 97 mg/dl (70-99); Lipase 205 U/L (23-300); Potassium 4.3 mmol/L (3.5-5.1); Sodium 140 mmol/L (135-145); Total Bilirubin 0.9 mg/dl (0.2-1.3); Total Protein 7.8 g/dl (6.3-8.2); eGFR > 60.00
--- NOTE | 2024-07-25 14:31 | ED.GENMED ---
History of Present Illness
<BJ Palma - Last Filed: 07/28/24 20:26>
General
Chief Complaint: Abdominal Symptoms
Source: patient
Exam Limitations: none
Time Seen by Provider: 07/25/24 14:17
Nursing documentation reviewed up to this point in time: agreed with
History of Present Illness
History of Present Illness:
Patient is a 64-year-old female with past medical history of TIA, hysterectomy (08/2023) complicated by pelvic abscess. She is followed by [facility] for this. She had multiple evaluations and reports had a small abscess that was too
close to an artery and therefore was not able to be removed. She was hospitalized in November 2024 for this at [facility] and was on Levaquin and 17 Augmentin and ID was involved. Patient reports both her urogynecologist surgeon at [facility] ( DR Mahoney )
and her urogynecologist DR Weir are aware of this chronic issues. She reports she was even recommended to go to pain management for this.
She has not seen pain management because she did not want to take any chronic pain medication.
She is presenting here today because of increasing and is concerned that the abscess was becoming larger. She reports this pain has been increasing for' a while.'
She denies any fever or chills. She complains of discomfort in the left lower abdomen.
Past History
<BJ Palma - Last Filed: 07/28/24 20:26>
Past History
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
ED Past Surgical History: Gynecological (Vaginal hysterectomy/pelvic floor left August 28, 2023) and Other (Right neck lymph nodes removed, Hemorrhoids)
Social History
Tobacco: Non-smoker
Alcohol: None
Personal:
Living: with family
Employment: Employed
Family History
Family History: Other (reviewed and non-contributory)
Review of Systems
<BJ Palma - Last Filed: 07/28/24 20:26>
Review of Systems
Allergies reviewed?: Yes
All Other Systems: ROS reviewed and negative except as documented in HPI and ROS
Constitutional: Reports no symptoms; Denies fever, fatigue or chills
EENT: Reports no symptoms
Respiratory: Reports no symptoms
Cardiac: Reports no symptoms
ABD/GI: Reports abdominal pain (llq pain ); Denies vomiting or diarrhea
: Reports no symptoms
Musculoskeletal: Reports no symptoms
Skin: Reports no symptoms
Neurological: Reports no symptoms
Hematologic/Lymphatic: Reports no symptoms
Psychiatric: Reports no symptoms
Phy Exam
<BJ Palma - Last Filed: 07/28/24 20:26>
General Physical Exam
General Presentation: no apparent distress
General age: appears stated age
General Skin: warm and dry
General Habitus: normal
General Mental: alert
General Hydration: appears well hydrated
Gastrointestinal Exam
Gastrointestinal Exam: soft and other (mild llq tenderness no guarding )
Neurological Exam
Neurological Exam: alert and oriented x3
Course
<BJ Palma - Last Filed: 07/28/24 20:26>
Orders/Labs/Results
Orders:
Orders
07/25/24 12:53
Complete Blood Count/With Diff Urgent
Comprehensive Metabolic Panel Urgent
Lipase Urgent
07/25/24 15:41
CT Abd/pel W Iv And Oral Contr Urgent
Comment:
Reason For Exam: left lower quad pain hx of abscess
Iohexol [Omnipaque] See Protocol PO NOW STA
07/25/24 15:59
0.9% Sodium Chloride 1000 ml [Nss] 1,000 ml IV BOLUS
Abnormal Lab Results
07/25/24
12:53
BUN 19 H mg/dl
(717)
AST 58 H U/L
(14-36)
ALT 71 H U/L
(0-35)
07/25/24 12:53
07/25/24 12:53
Vital Signs
Initial and Last Documented VS:
Initial Vital Signs
Temp Pulse Resp BP Pulse Ox
98.8 F 95 18 130/92 97
07/25/24 12:45 07/25/24 12:45 07/25/24 12:45 07/25/24 12:45 07/25/24 12:45
Last Documented Vital Signs
Temp Pulse Resp BP Pulse Ox
98.8 F 89 15 115/76 99
07/25/24 12:45 07/25/24 21:41 07/25/24 21:41 07/25/24 21:41 07/25/24 21:41
Knuckle Strap Sewer consulted with Physician
Knuckle Strap Sewer consulted with physician?: Yes
Name of Physician Consulted: Rosa
<Eliane Garcia PA-C - Last Filed: 07/25/24 22:20>
Orders/Labs/Results
Orders:
Orders
07/25/24 12:53
Complete Blood Count/With Diff Urgent
Comprehensive Metabolic Panel Urgent
Lipase Urgent
07/25/24 15:41
CT Abd/pel W Iv And Oral Contr Urgent
Comment:
Reason For Exam: left lower quad pain hx of abscess
Iohexol [Omnipaque] See Protocol PO NOW STA
07/25/24 15:59
0.9% Sodium Chloride 1000 ml [Nss] 1,000 ml IV BOLUS
Abnormal Lab Results
07/25/24
12:53
BUN 19 H mg/dl
(7-17)
AST 58 H U/L
(14-36)
ALT 71 H U/L
(0-35)
07/25/24 12:53
07/25/24 12:53
Vital Signs
Initial and Last Documented VS:
Initial Vital Signs
Temp Pulse Resp BP Pulse Ox
98.8 F 95 18 130/92 97
07/25/24 12:45 07/25/24 12:45 07/25/24 12:45 07/25/24 12:45 07/25/24 12:45
Last Documented Vital Signs
Temp Pulse Resp BP Pulse Ox
98.8 F 89 15 115/76 99
07/25/24 12:45 07/25/24 21:41 07/25/24 21:41 07/25/24 21:41 07/25/24 21:41
<BJ Palma - Last Filed: 07/28/24 20:26>
MDM/Problems Addressed
Differential Diagnosis Includes:
not limited to: Pelvic abscess diverticulitis
MDM/Problems Addressed:
As documented patient has a history of hysterectomy complicated by abscess. She complains of increasing left lower quadrant pain.
she denies any fever chills she is afebrile here with normal white count and on exam is tender to the left lower quadrant however no guarding. Her white count is normal. She is afebrile.
CAT scan pending at this time .
Patient no acute distress.
Care of patient at this time transferred to [facility].
Chronic conditions affecting care:
Previous hysterectomy complicated by previous abscess
<BJ Palma - Last Filed: 07/28/24 20:26>
*Radiology
Radiology exam reviewed: radiology read reviewed
*Pulse Oximetry
Patient hypoxic: no
<Eliane Garcia PA-C - Last Filed: 07/25/24 22:20>
*Critical Care Note
Total Time (30-74mins, 75-104mins- exclusive of procedures): Not Applicable
<Eliane Garcia PA-C - Last Filed: 07/25/24 22:20>
Update Note
Update Note:
Update: Received patient in signout pending CT scan. CT report reviewed which shows no acute abnormalities. Lengthy discussion with patient. Did contact radiologist to specifically evaluate area in left pelvis, site of prior abscess.
Rose Marie sees no radiologic evidence of abscess and feels it may have completely resolved at this point. Ultimately�patient is afebrile with no leukocytosis. Very low suspicion for acute intra-abdominal infectious process. Considered pelvic
ultrasound though feel very low yield and patient agrees. No indication for admission. Feel stable for discharge home with urogynecology follow-up for further evaluation. Strict return precautions discussed. Patient expressed verbal
understanding.
ED Attending Note
<BJ Palma - Last Filed: 07/28/24 20:26>
-
Portions of this chart may have been created with voice recognition software.� Occasional wrong word or��sound alike� substitutions may have occurred due to the inherent limitations of voice recognition software.
Discharge Plan
Departure
Patient Disposition: Home (Routine Discharge)
Date of Disposition: 07/25/24
Time of Disposition: 21:21
Patient with high blood pressure during this ER visit?: Yes
Discharge Problem:
Abdominal pain
Instructions: Abdominal Pain, BLOOD PRESSURE
Prescriptions:
No Action
amoxicillin-pot clavulanate 875-125 mg Tablet
1 tab PO Q12H
atorvastatin 80 mg Tablet
80 mg PO QPM
polyethylene glycol 3350 [Miralax] 17 gram Powder In Packet
17 g PO DAILYPRN PRN (Reason: constipation)
cetirizine [Zyrtec] 10 mg Tablet
10 mg PO HSPRN PRN (Reason: allergies)
coenzyme Q10 [Co Q-10] 100 mg Capsule
300 mg PO DAILY@1000
calcium carbonate [Calcium 600] 600 mg calcium (1,500 mg) Tablet
600 mg PO DAILY
aspirin 81 mg Tablet,Delayed Release (Dr/Ec)
81 mg PO DAILY
famotidine 20 mg Tablet
20 mg PO QPM
levofloxacin 750 mg Tablet
750 mg PO HS
omeprazole 20 mg Tablet,Delayed Release (Dr/Ec)
20 mg PO DAILY
Excedrin Migraine 250-250-65 mg Tablet
1 tab PO DAILYPRN PRN (Reason: headache)
clopidogrel 75 mg Tablet
75 mg PO DAILY Qty: 90 5RF
cyclobenzaprine 10 mg tablet
10 mg PO TIDPRN PRN (Reason: muscle spasm) Qty: 15 0RF
Referrals:
Andre Hatfield, DO [Family Provider] - Follow up in 2-3 days
Activity Restrictions/Additional Instructions:
RETURN TO THE EMERGENCY DEPARTMENT WITH ANY FEVER, CHILLS, PERSISTENT/WORSENING ABDOMINAL PAIN, INTRACTABLE NAUSEA/VOMITING, DIFFICULTIES URINATING, WORSENING IN CURRENT SYMPTOMS, OR ANY OTHER CONCERNS
- I discussed that your CT scan showed no evidence of an intra-abdominal abscess. Your liver function enzymes were mildly elevated otherwise no acute abnormalities noted on lab work.
- Is important stay well-hydrated. You can take Tylenol as needed for pain.
- Follow-up with your urogynecologist at [facility] for further evaluation/management.
Monitor your symptoms closely and return to the emergency department with any acute worsening/new symptoms or any other concerns
Interventions
Interventions:
*Risk Screen - Suicide Last Done: 07/25/24 12:45
*General Assessment Last Done: 07/25/24 12:45
*Neglect/Abuse Screening Last Done: 07/25/24 12:45
*Nursing Disposition Last Done: 07/25/24 21:43
KR-Yhbtny-Wirtkrtfmj Assessment Last Done: 07/25/24 15:17
Discharge Date and Time
Discharge Date/Time: 07/25/24 21:43
Print Language: CITIZEN OF [place]
[2024-07-25 15:13] VITALS: BP 128/85
[2024-07-25 16:00] VITALS: BP 111/73
[2024-07-25] MEDS: OMNIPAQUE 50 ML PO (16:18)
[2024-07-25] MEDS: NSS 1000 IV (16:51)
[2024-07-25 21:41] VITALS: BP 115/76
== END 2024-07-25 21:43 | disposition home or self-care (01) ==
LOC: EMR 12:37
PROVIDERS: Emergency Medicine; EMERGENCY PHYSICIAN Emergency Medicine; FAMILY PHYSICIAN Family Medicine
DX: R10.9 Unspecified abdominal pain (principal); N73.9 Female pelvic inflammatory disease, unspecified; E78.00 Pure hypercholesterolemia, unspecified; M79.7 Fibromyalgia; Z86.73 Personal history of transient ischemic attack (TIA), and cerebral infarction without residual deficits; Z87.19 Personal history of other diseases of the digestive system; Z90.710 Acquired absence of both cervix and uterus
CPT/HCPCS: 99284; 96360; 74177; 80053; 83690; 85025; Q9967

== ENCOUNTER → 2024-07-30 10:28 | Outpatient (REF) | payer OTHER, SELFPAY | LOC: RCS 10:28 | PROVIDERS: ATTENDING PHYSICIAN Internal Medicine Cardiovascular Disease; FAMILY PHYSICIAN Family Medicine | DX: I63.431 Cerebral infarction due to embolism of right posterior cerebral artery (principal); Q21.12 Patent foramen ovale; Z87.74 Personal history of (corrected) congenital malformations of heart and circulatory system | CPT/HCPCS: 93306 ==

== ENCOUNTER → 2024-08-11 13:53 | Outpatient (REF) | payer OTHER, SELFPAY | LOC: HWRAD 13:53 | PROVIDERS: ATTENDING PHYSICIAN Internal Medicine Cardiovascular Disease; FAMILY PHYSICIAN Family Medicine | DX: Q21.12 Patent foramen ovale (principal) | CPT/HCPCS: 71250 ==

== ENCOUNTER 2024-08-15 07:13 | Day surgery (SDC) | payer OTHER, SELFPAY ==
[2024-08-14 13:48] VITALS: BMI 21.1
--- NOTE | 2024-08-14 16:32 | HPS.HSE ---
Family Physician
-
Family Physician: Andre Hatfield
Chief Complaint
-
MARCELA Bubble Study
History of Present Illness
64-year-old female who was recovering
from a partial hysterectomy when she began to notice she did not
have use of her left hand. Her daughter commented she had a facial
palsy with dysarthria and she was admitted to [facility]
09/10/2023 due to acute CVA. By the time she arrived, deficits had
completely resolved. Therefore, she did not require nor was a
candidate for thrombolytics/thrombectomy. Brain MRI revealed
small acute/subacute infarct in the right parietal lobe. Head and
neck MRA did not reveal abnormality with the exception of right
hypoplastic vertebral artery. Blood pressure remained well
controlled throughout her stay, ranging between 120s to highest
documented 145. Stress echo performed did not reveal evidence of
hemodynamic compromise/ischemia, transthoracic echocardiogram
09/10/2023 that same visit showed normal left ventricular size and
systolic function, 60-65 percent with no significant valve disease.
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 The
patient has been followed by Dr. Juan of Neurology who has performed
hypercoagulable testing.
MARCELA performed 11/09/2023 revealed Hypermobile, at times aneurysmal,
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
saline studies. Following MARCELA study, patient was brought back by
ambulance and admitted due to potential orthostasis. Patient states
paramedics informed her BP was extremely low. Baseline blood
pressure trends low.
Subsequently PFO closure was performed 01/16/2024.
Transthoracic echocardiogram 07/30/24 performed was abnormal.
Contrast imaging showing residual large volume shunt through PFO.
Flow appeared to be dependent on septal shift and more easily seen
with Valsalva than at rest.
Compared to the prior on 01/17/2024, contrast study was newly positive for
right-left shunt through PFO. Recommendation to further characterize will
be performed via MARCELA bubble study.
.
Medical History
Past Medical History
Past Medical History: Reports Other (see below)
Additional Past Medical History:
1. PFO--closure 01/16/2024.
2. CVA 09/10/2023, right parietal infarcts with resolved deficits.
3. History of migraine.
4. Hyperlipidemia.
5. Fibromyalgia.
6. Recent diverticulitis.
Past Surgical History: Reports Other (see below)
Additional Past Surgical History:
PFO closure 01/16/2024
Hemorrhoidectomy
Partial hysterectomy.
Social History
Tobacco: Non-smoker
Alcohol: Occasional
Family History
Family History: Not pertinent
Allergies / Home Medications
Allergies reflects when Allergies were last updated in [facility].
Home Medications with original date entered in [employer]
Allergy/Medication List:
HOME MEDICATIONS:
1. Augmentin 1 tablet q.12 hours.
2. Aspirin 81 mg daily.
3. Crestor 40 mg daily.
ALLERGIES: Sulfa.
Review of Systems
-
A 12 point ROS was completed and negative except as noted: Yes
Physical Exam
Vital Signs
BP 130/85 HR 70 O2 sat 98
Physical Exam
General: Well Developed and Well Nourished
HEENT: NormoCephalic
Respiratory: Clear
Cardiac: S1/S2
GI: Soft, Non Tender and Normal Bowel Sounds
Musculoskeletal: No Cyanosis
Neuro: AO x 3 and Cranial Nerves Intact
Impression/Plan
-
IMPRESSION/PLAN:
1. MARCELA bubble.
2. Prior orthostasis following MARCELA sedation requiring ED visit. Possible orthostatic vital check prior to d/c with Midodrine if indicated.
== END 2024-08-15 09:59 | disposition home or self-care (01) ==
LOC: CATH 07:13
PROVIDERS: ATTENDING PHYSICIAN Internal Medicine; FAMILY PHYSICIAN Family Medicine; OTHER PHYSICIAN Internal Medicine Cardiovascular Disease
DX: Q21.12 Patent foramen ovale (principal); Z86.73 Personal history of transient ischemic attack (TIA), and cerebral infarction without residual deficits; E78.5 Hyperlipidemia, unspecified; M79.7 Fibromyalgia; Z79.82 Long term (current) use of aspirin
CPT/HCPCS: 93312; 93320; 93325; 93005

== ENCOUNTER 2024-10-02 06:21 | Day surgery (SDC) | payer OTHER, SELFPAY | END 2024-10-02 11:06 | disposition home or self-care (01) | LOC: GI 06:21 | PROVIDERS: ATTENDING PHYSICIAN Internal Medicine | DX: Z12.11 Encounter for screening for malignant neoplasm of colon (principal); K57.30 Diverticulosis of large intestine without perforation or abscess without bleeding; K55.20 Angiodysplasia of colon without hemorrhage; K62.89 Other specified diseases of anus and rectum; K44.9 Diaphragmatic hernia without obstruction or gangrene; K22.89 Other specified disease of esophagus; K21.9 Gastro-esophageal reflux disease without esophagitis; K31.89 Other diseases of stomach and duodenum; D12.0 Benign neoplasm of cecum | CPT/HCPCS: 45385; 43239; 88305; 88342 ==